=== PATIENT | female | born 1955 | race Caucasian/White ===

== ENCOUNTER → 2023-06-10 | Emergency (ER) | payer OTHER ==
[~2023-06-10] MED LIST: CIPROFLOXACIN 400mg IV 400 MG/200 ML BAG IV ONE; FAMOTIDINE 20 MG/2 ML VIAL IV ONE; METRONIDAZOLE 500mg IVPB 500 MG/100 ML BAG IV ONE; NA CHLORIDE 0.9% 1,000 ML ONE; NS KCL 20MEQ 1,000 ML IV ONE; POTASSIUM 25 MEQ EFFERV TAB ONE; PROMETHAZINE INJ 25 MG/ML AMP ONE
--- OUTSIDE RECORDS SUMMARY | 2023-06-10 09:54 | XMS REPORT | Continuity of Care Document ---
Author Name Unknown Address [address] [facility] [address] [place] [id number] [facility] Address [address] [facility] [address] [place] [address] Care Team Providers Care Sales And Marketing Engineer Name Role Phone Anna Jones MD Primary Care Physician Brianna Samayoa Attending Clinician Unavailable GC_GCBZW_Kadiyala_S Attending Clinician Real Agosto MD Attending Clinician [phone] Anna Jones MD Attending Clinician + [phone] Doctor Unassigned, [place] Attending Clinician U navailable 2, [facility] Attending Clinician Unavailable REAL KWOK Attending Clinician Unavailable Jaison Hernandez DO Attending Clinician ANNA JONES Attending Clinician [facility] Medicare Wellness [facility] Attending Clinici an Unavailable Bette Izquierdo MD Attending Clinician Olive PRIETO, Shar Cowart Attending Clinician [phone] BETTE IZQUIERDO Attending Clinician Unavail able GC_GCBZW_Kadiyala_S Admitting Clinician Pepito Dunn MD, Shar Cowart Admitting Clinician [phone] SHAR DUNN TAYLA Admitting Clinician Unavailab le Payers Payer Name Policy Type Policy Number Effective Date Expirati on Date Source [facility] AARP MCR Advantage (HMO-POS) [id number] 2022 00:00:00 [facility] MEDICARE PART A \\T\\ B [id number] 2018 00:00:00 CONTINENTAL BENEFITS [id number] 2018 00:00:00 Problems Condition Name Condition Details Condition Category Status Onset Date Resolution Date Last Treatment Date Treating Clinician Comments Source 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 10-30 00:00: 00 [facility] Primary hypothyroi dism Primary hypothyroi dism Disease Active 2015-05 00:00: 00 [facility] 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), 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), managed as type 1 Disease Active 2014-05 00:00: 00 [facility] Pure hyperchole sterolemia Pure hyperchole sterolemia Disease Active 2014-05 00:00: 00 [facility] [id number] Acquired hypothyroi dism Problem [facility] [id number] Non-season al allergic rhinitis, unspecifie d trigger Problem [facility] [id number] Hearing difficulty of both ears Problem [facility] [id number] Type 1 diabetes mellitus with hyperglyce patt Problem [facility] Allergies, Adverse Reactions, Alerts Allergy Name Allergy Type Status Severity Reaction(s) Onset Date Inactive Date Treating Clinician Comments Source Sulfa (Sulfona mide Antibiot ics) Propensi ty to adverse reaction s Active Rash 2014-05 00:00: 00 [facility] Sulfa (Sulfona mide Antibiot ics) Propensi ty to adverse reaction s Active Rash 2014-05 00:00: 00 [facility] Substanc e with sulfonam brian structur e and antibact erial mechanis m of action (substan ce) Substanc e with sulfonam brian structur e and antibact erial mechanis m of action (substan ce) Active Unknown [facility] Social History Social Habit Start Date Stop Date Quantity Comments Source History of Tobacco Use [facility] Sex Assigned At [facility] History SDOH Alcohol Std Drinks [facility] History SDOH Alcohol Binge [facility] History SDOH Alcohol Comment [facility] Exposure to SARS-CoV-2 (event) 2020-07-24 00:00:00 2020-08-23 10:07:00 Not sure [facility] History of Social function 2020-01-05 00:00:00 2020-01-05 00:00:00 [facility] History SDOH Alcohol Frequency 2019-11-06 00:00:00 2019-11-06 00:00:00 1 [facility] Alcohol intake 2019-11-06 00:00:00 2019-11-06 00:00:00 0 /d [facility] Tobacco use and exposure 2019-11-06 00:00:00 2019-11-06 00:00:00 Smokeless tobacco non-user [facility] Smoking Status Start Date Stop Date Source Never Smoker [facility] Medications Ordered Medication Name Filled Medication Name Start Date Stop Date Current Medication? Ordering Clinician Indication Dosage Frequency Signature (SIG) Comments Components Source Rosuvastati n Calcium 10 MG Rosuvastati n Calcium 10 MG 2022-05 0- 00:00: 00 No 1{table t} QD Rosuvastat in Calcium 10 MG Rosuvastati n Calcium 10 MG Rosuvastati n Calcium 10 MG 2022-05 0- 00:00: 00 No 1{table t} QD Rosuvastat in Calcium 10 MG Rosuvastati n Calcium 10 MG Rosuvastati n Calcium 10 MG 2022-05 0-11 00:00: 00 No 1{table t} QD Rosuvastat in Calcium 10 MG Rosuvastati n Calcium 10 MG Rosuvastati n Calcium 10 MG 2022-05 0-11 00:00: 00 No 1{table t} QD Rosuvastat in Calcium 10 MG Rosuvastati n Calcium 10 MG Rosuvastati n Calcium 10 MG 2022-05 0-11 00:00: 00 No 1{table t} QD Rosuvastat in Calcium 10 MG Rosuvastati n Calcium 10 MG Rosuvastati n Calcium 10 MG 2022- 0-11 00:00: 00 No 1{table t} QD Rosuvastat in Calcium 10 MG Rosuvastati n Calcium 10 MG Rosuvastati n Calcium 10 MG 2022-05 0-11 00:00: 00 No 1{table t} QD Rosuvastat in Calcium 10 MG Rosuvastati n Calcium 10 MG Rosuvastati n Calcium 10 MG 2022-05 0-11 00:00: 00 No 1{table t} QD Rosuvastat in Calcium 10 MG LEVEMIR FLEXTOUCH U-100 INSULN 100 unit/mL (3 mL) injection 06-22 00:00: 00 Yes [id number] 5U INJECT 5 UNITS UNDER THE SKIN 2 (TWO) TIMES DAILY. E13.9 [facility] LEVEMIR FLEXTOUCH U-100 INSULN 100 unit/mL (3 mL) injection 06-22 00:00: 00 Yes [id number] 5U INJECT 5 UNITS UNDER THE SKIN 2 (TWO) TIMES DAILY. E13.9 [facility] LEVEMIR FLEXTOUCH U-100 INSULN 100 unit/mL (3 mL) injection 06-22 00:00: 00 Yes [id number] 5U INJECT 5 UNITS UNDER THE SKIN 2 (TWO) TIMES DAILY. E13.9 [facility] glucagon (GVOKE HYPOPEN 1-PACK) 1 mg/0.2 mL AtIn 09-15 00:00: 00 Yes [id number] 1mg inject 1 mg under the skin as needed (hypoglyce patt). [facility] glucagon (GVOKE HYPOPEN 1-PACK) 1 mg/0.2 mL AtIn 09-15 00:00: 00 Yes [id number] 1mg inject 1 mg under the skin as needed (hypoglyce patt). [facility] glucagon (GVOKE HYPOPEN 1-PACK) 1 mg/0.2 mL AtIn 09-15 00:00: 00 Yes [id number] 1mg inject 1 mg under the skin as needed (hypoglyce patt). [facility] HUMALOG KATHRINE KWIKPEN U-100 100 unit/mL in 3 00:00: 00 Yes [id number] 2U inject 2-5 Units under the skin 3 (three) times daily before meals. E13.9 [facility] HUMALOG KATHRINE KWIKPEN U-100 100 unit/mL in 3 00:00: 00 Yes [id number] 2U inject 2-5 Units under the skin 3 (three) times daily before meals. E13.9 [facility] HUMALOG KATHRINE KWIKPEN U-100 100 unit/mL in 08-23 00:00: 00 Yes [id number] 2U inject 2-5 Units under the skin 3 (three) times daily before meals. E13.9 [facility] LEVEMIR FLEXTOUCH U-100 INSULN 100 unit/mL (3 mL) injection 08-23 00:00: 00 06-22 00:00 :00 No [id number] 5U inject 5 Units under the skin 2 (two) times daily. E13.9 [facility] DULOXETINE 30 mg capsule 2 00:00: 00 Yes [id number] TAKE 1 CAPSULE BY MOUTH EVERY DAY [facility] DULOXETINE 30 mg capsule 2 00:00: 00 Yes [id number] TAKE 1 CAPSULE BY MOUTH EVERY DAY [facility] DULOXETINE 30 mg capsule 2 00:00: 00 Yes [id number] TAKE 1 CAPSULE BY MOUTH EVERY DAY [facility] levothyroxi ne 88 mcg tablet 2019-05 00:00: 00 Yes [id number] 88ug Take 1 tablet by mouth every morning. [facility] levothyroxi ne 88 mcg tablet 2019-05 00:00: 00 Yes [id number] 88ug Take 1 tablet by mouth every morning. [facility] levothyroxi ne 88 mcg tablet 2019-05 00:00: 00 Yes [id number] 88ug Take 1 tablet by mouth every morning. [facility] Insulin [place], Disposable, (BD INSULIN PEN NEEDLE UF) 31 gauge x 5/16" Ndle 08 00:00: 00 Yes [id number] Four times daily E10.65 [facility] Insulin [place], Disposable, (BD INSULIN PEN NEEDLE UF) 31 gauge x 5/16" Ndle 08 00:00: 00 Yes [id number] Four times daily E10.65 [facility] Insulin [place], Disposable, (BD INSULIN PEN NEEDLE UF) 31 gauge x 5/16" Ndle 12-01 00:00: 00 Yes [id number] Four times daily E10.65 [facility] Insulin [place], Disposable, (BD INSULIN PEN NEEDLE UF) 31 gauge x 5/16" Ndle 12-01 00:00: 00 Yes [id number] Four times daily E10.65 [facility] Insulin Glargine (LANTUS SOLOSTAR U-100 INSULIN) 100 unit/mL (3 mL) injection 06-24 00:00: 00 08-23 00:00 :00 No [id number] 10U inject 10 Units under the skin every morning. E10.9 [facility] insulin aspart U-100 (NOVOLOG FLEXPEN U-100 INSULIN) 100 unit/mL (3 mL) injection 06-24 00:00: 00 08-23 00:00 :00 No [id number] Take up to 15 units daily according to sliding scale and carbohydra te ratio E10.9 [facility] levothyroxi ne 88 mcg tablet 06-24 00:00: 00 04-05 00:00 :00 No [id number] 88ug Take 1 tablet by mouth every morning. [facility] glucagon (GLUCAGON EMERGENCY KIT, HUMAN,) 1 mg injection 07-16 00:00: 00 08-23 00:00 :00 No [id number] 1mg 1 mg by Intramuscu lar route as needed (When low glucose and unconsciou s). [facility] blood sugar diagnostic (ONETOUCH VERIO) strip 09-26 00:00: 00 08-23 00:00 :00 No [id number] Use as directed, 6 times daily, DX: E11.9 [facility] Vitamin C Vitamin C No Vitamin C Iron 325 (65 Fe) MG Iron 325 (65 Fe) MG No 1{table t} Iron 325 (65 Fe) MG Collagen Collagen No Collagen HumaLOG 100 UNIT/ML HumaLOG 100 UNIT/ML No HumaLOG 100 UNIT/ML Calcium 500 MG Calcium 500 MG No 1{table t_with_ meals} BID Calcium 500 MG Levothyroxi ne Sodium 88 MCG Levothyroxi ne Sodium 88 MCG No Levothyrox ine Sodium 88 MCG Vitamin C Vitamin C No Vitamin C Iron 325 (65 Fe) MG Iron 325 (65 Fe) MG No 1{table t} Iron 325 (65 Fe) MG Collagen Collagen No Collagen HumaLOG 100 UNIT/ML HumaLOG 100 UNIT/ML No HumaLOG 100 UNIT/ML Calcium 500 MG Calcium 500 MG No 1{table t_with_ meals} BID Calcium 500 MG Levothyroxi ne Sodium 88 MCG Levothyroxi ne Sodium 88 MCG No Levothyrox ine Sodium 88 MCG Vitamin C Vitamin C No Vitamin C Iron 325 (65 Fe) MG Iron 325 (65 Fe) MG No 1{table t} Iron 325 (65 Fe) MG Collagen Collagen No Collagen HumaLOG 100 UNIT/ML HumaLOG 100 UNIT/ML No HumaLOG 100 UNIT/ML Calcium 500 MG Calcium 500 MG No 1{table t_with_ meals} BID Calcium 500 MG Levothyroxi ne Sodium 88 MCG Levothyroxi ne Sodium 88 MCG No Levothyrox ine Sodium 88 MCG Vitamin C Vitamin C No Vitamin C Iron 325 (65 Fe) MG Iron 325 (65 Fe) MG No 1{table t} Iron 325 (65 Fe) MG Collagen Collagen No Collagen HumaLOG 100 UNIT/ML HumaLOG 100 UNIT/ML No HumaLOG 100 UNIT/ML Calcium 500 MG Calcium 500 MG No 1{table t_with_ meals} BID Calcium 500 MG Levothyroxi ne Sodium 88 MCG Levothyroxi ne Sodium 88 MCG No Levothyrox ine Sodium 88 MCG Vitamin C Vitamin C No Vitamin C Iron 325 (65 Fe) MG Iron 325 (65 Fe) MG No 1{table t} Iron 325 (65 Fe) MG Collagen Collagen No Collagen HumaLOG 100 UNIT/ML HumaLOG 100 UNIT/ML No HumaLOG 100 UNIT/ML Calcium 500 MG Calcium 500 MG No 1{table t_with_ meals} BID Calcium 500 MG Levothyroxi ne Sodium 88 MCG Levothyroxi ne Sodium 88 MCG No Levothyrox ine Sodium 88 MCG Vitamin C Vitamin C No Vitamin C Iron 325 (65 Fe) MG Iron 325 (65 Fe) MG No 1{table t} Iron 325 (65 Fe) MG Collagen Collagen No Collagen HumaLOG 100 UNIT/ML HumaLOG 100 UNIT/ML No HumaLOG 100 UNIT/ML Calcium 500 MG Calcium 500 MG No 1{table t_with_ meals} BID Calcium 500 MG Levothyroxi ne Sodium 88 MCG Levothyroxi ne Sodium 88 MCG No Levothyrox ine Sodium 88 MCG Vitamin C Vitamin C No Vitamin C Iron 325 (65 Fe) MG Iron 325 (65 Fe) MG No 1{table t} Iron 325 (65 Fe) MG Collagen Collagen No Collagen HumaLOG 100 UNIT/ML HumaLOG 100 UNIT/ML No HumaLOG 100 UNIT/ML Calcium 500 MG Calcium 500 MG No 1{table t_with_ meals} BID Calcium 500 MG Levothyroxi ne Sodium 88 MCG Levothyroxi ne Sodium 88 MCG No Levothyrox ine Sodium 88 MCG Vitamin C Vitamin C No Vitamin C Iron 325 (65 Fe) MG Iron 325 (65 Fe) MG No 1{table t} Iron 325 (65 Fe) MG Collagen Collagen No Collagen HumaLOG 100 UNIT/ML HumaLOG 100 UNIT/ML No HumaLOG 100 UNIT/ML Calcium 500 MG Calcium 500 MG No 1{table t_with_ meals} BID Calcium 500 MG Levothyroxi ne Sodium 88 MCG Levothyroxi ne Sodium 88 MCG No Levothyrox ine Sodium 88 MCG Vital Signs Vital Name Observation Time Observation Value Comments S ource height 2023-03-05 14:00:00 60.5 [in_i] Comm on [facility] weight 2023-03-05 14:00:00 101.4 [lb_av] Co mmon [facility] temperature 2023-03-05 14:00:00 97.6 [degF] Com mon [facility] bmi 2023-03-05 14:00:00 19.48 kg/m2 Comm on [facility] oximetry 2023-03-05 14:00:00 95 % Commo n [facility] respiratory rate 2023-03-05 14:00:00 18 /min Common [facility] blood pressure systolic 2023-03-05 14:00:00 134 mm[Hg] [facility] blood pressure diastolic 2023-03-05 14:00:00 78 mm[Hg] Common [facility] height 2022-09-03 11:40:00 60.5 [in_i] Comm on [facility] weight 2022-09-03 11:40:00 104.6 [lb_av] Co mmon [facility] temperature 2022-09-03 11:40:00 97.8 [degF] Com mon [facility] bmi 2022-09-03 11:40:00 20.09 kg/m2 Comm on [facility] oximetry 2022-09-03 11:40:00 95 % Commo n [facility] respiratory rate 2022-09-03 11:40:00 16 /min [facility] blood pressure systolic 2022-09-03 11:40:00 139 mm[Hg] [facility] blood pressure diastolic 2022-09-03 11:40:00 67 mm[Hg] [facility] height 2022-09-03 10:40:00 60.5 [in_i] Comm on [facility] weight 2022-09-03 10:40:00 107 [lb_av] Comm on [facility] bmi 2022-09-03 10:40:00 20.55 kg/m2 Comm on [facility] oximetry 2022-09-03 10:40:00 95 % Commo n [facility] respiratory rate 2022-09-03 10:40:00 16 /min [facility] blood pressure systolic 2022-09-03 10:40:00 139 mm[Hg] Common [facility] blood pressure diastolic 2022-09-03 10:40:00 67 mm[Hg] [facility] height 2022-07-13 10:40:00 60.5 [in_i] Comm on [facility] weight 2022-07-13 10:40:00 107 [lb_av] Comm on [facility] temperature 2022-07-13 10:40:00 97.3 [degF] Com mon [facility] bmi 2022-07-13 10:40:00 20.55 kg/m2 Comm on [facility] oximetry 2022-07-13 10:40:00 98 % Commo n [facility] respiratory rate 2022-07-13 10:40:00 16 /min [facility] blood pressure systolic 2022-07-13 10:40:00 128 mm[Hg] [facility] blood pressure diastolic 2022-07-13 10:40:00 72 mm[Hg] [facility] Encounters Start Date/Time End Date/Time Encounter Type Admission Type Attending [facility] Care Facility Care Department Encounter ID Source 2023-04-09 15:15:00 Outpatient Brianna Samayoa [facility] [id number] [facility] 2022-08-29 08:38:01 Outpatient Brianna Samayoa [facility] [id number] [facility] 2022-07-13 10:40:03 Outpatient Brianna Samayoa [facility] [id number] [facility] 2023-03-26 00:00:00 2023-03-26 00:00:00 Outpatient GC_GCBZW_Ka diyala_S PRIV PRIV [id number] [facility] 2023-03-25 00:00:00 2023-03-25 00:00:00 Outpatient GC_GCBZW_Ka diyala_S PRIV PRIV [id number] [facility] 2023-03-06 00:00:00 2023-03-06 00:00:00 (WEB) STLMLC STLMLC [id number] [facility] 2023-03-05 00:00:00 2023-03-05 00:00:00 OFFICE VISIT ESTAB PT LEVEL 4 STLMLC STLMLC [id number] [facility] 2022-11-29 00:00:00 2022-11-29 00:00:00 (TEL) STLMLC STLMLC [id number] [facility] 2022-11-22 00:00:00 2022-11-22 00:00:00 (TEL) STLMLC STLMLC [id number] [facility] 2022-09-14 00:00:00 2022-09-14 00:00:00 (TEL) STLMLC STLMLC [id number] [facility] 2022-09-03 00:00:00 2022-09-03 00:00:00 OFFICE VISIT ESTAB PT LEVEL 3 STLMLC STLMLC [id number] [facility] 2022-09-03 00:00:00 2022-09-03 00:00:00 SUB ANNUAL [facility] WELLNESS VISIT STLMLC STLMLC [id number] [facility] 2022-07-13 00:00:00 2022-07-13 00:00:00 OFFICE VISIT NEW PT LEVEL 3 STLMLC STLMLC [id number] [facility] 2021-12-01 00:00:00 2021-12-01 00:00:00 Refill [facility] MEDICAL OFFICE BUILDING [id number] 350.1.13.10 4.2.7.2.686 [id number] [facility] 2021-09-22 00:00:00 2021-09-22 00:00:00 Refill [facility] MEDICAL OFFICE BUILDING [id number] 350.1.13.10 4.2.7.2.686 [id number] [facility] 2021-06-18 00:00:00 2021-06-18 00:00:00 Refill Rissa [facility] BUILDING [id number] 350.1.13.10 4.2.7.2.686 [id number] [facility] 2021-05-31 00:00:00 2021-05-31 00:00:00 Telephone Rissa [facility] MED[facility] OFF[facility] BUILDING 1.2840.114 350.1.13.10 4.2.7.2.686 [id number] [facility] 2021-04-30 00:00:00 2021-04-30 00:00:00 Refill Rissa [facility] BUILDING 1.2840.114 350.1.13.10 4.2.7.2.686 [id number] [facility] 2020-09-23 00:00:00 2020-09-23 00:00:00 Telephone Anna Jones [facility] Office Building One 1.2840.114 350.1.13.10 4.2.7.2.686 [id number] [facility] 2020-09-15 00:00:00 2020-09-15 00:00:00 Orders Only Doctor Unassigned, [place] [facility] 1.2840.114 350.1.13.10 4.2.7.2.686 [id number] [facility] 2020-09-14 00:00:00 2020-09-14 00:00:00 Telephone Rissa [facility] Building 1.2840.114 350.1.13.10 4.2.7.2.686 [id number] [facility] 2020-09-02 00:00:2020-09-02 00:00:00 Orders Only Doctor Unassigned, [place] [facility] 1.2.840.114 350.1.13.10 4.2.7.2.686 [id number] [id number] [facility] 2020-08-24 08:06:16 2020-08-24 08:21:16 Software Engineering Supervisor Visit 2, [facility] 1.2.840.114 350.1.13.10 4.2.7.2.686 [id number] [facility] 2020-08-24 08:15:00 2020-08-24 08:15:00 Outpatient R [facility] [id number] [facility] 2020-08-24 00:00:00 2020-08-24 00:00:00 Orders Only Doctor Unassigned, [place] [facility] 1.2840.114 350.1.13.10 4.2.7.2.686 [id number] [id number] [facility] 2020-08-23 10:09:33 2020-08-23 11:01:17 Office Visit Rissa [facility] Building 1.2.840.114 350.1.13.10 4.2.7.2.686 [id number] [facility] 2020-08-23 10:00:00 2020-08-23 10:00:00 Outpatient R RISSA [facility] [id number] [facility] 2020-08-23 00:00:00 2020-08-23 00:00:00 Telephone Anna Jones [facility] Office Building One 1.2.840.114 350.1.13.10 4.2.7.2.686 [id number] [facility] 2020-08-18 00:00:00 2020-08-18 00:00:00 Telephone Veselka, Anna [facility] Office Building One 1.84.114 350.1.13.10 4.2.7.2.686 [id number] [facility] 2020-08-01 00:00:00 2020-08-01 00:00:00 Patient Outreach David Jaison Ball [facility] 1.840.114 350.1.13.10 4.2.7.2.686 [id number] [facility] 2020-06-25 00:00:00 2020-06-25 00:00:00 Refill Job [facility] Office Building One 1..114 350.1.13.10 4.2.7.2.686 [id number] [facility] 2020-06-03 13:14:05 2020-06-03 13:29:05 Office Visit Anna Jones [facility] Office Building One 1.84.114 350.1.13.10 4.2.7.2.686 [id number] [facility] 2020-06-03 13:15:00 2020-06-03 13:15:00 Outpatient R ANNA JONES [facility] [id number] [facility] 2020-05-06 13:00:00 2020-05-06 13:00:00 Outpatient R ANNA JONES [facility] [id number] [facility] 2020-04-05 09:03:34 2020-04-05 09:47:49 Office Visit Real Kwok [facility] Jennifer [facility] Building 1.84.114 350.1.13.10 4.2.7.2.686 [id number] [facility] 2020-04-05 09:00:00 2020-04-05 09:00:00 Outpatient R KWOK, [facility] [id number] [facility] 2020-04-05 00:00:00 2020-04-05 00:00:00 Orders Only Doctor Unassigned, [place] [facility] 1.2840.114 350.1.13.10 4.2.7.2.686 [id number] [facility] 2020-02-03 08:51:07 2020-02-03 10:02:55 Nurse Visit Med, Medicare Wellness Tiago [facility] Building 1.20.114 350.1.13.10 4.2.7.2.686 [id number] [facility] 2020-02-03 09:00:00 2020-02-03 09:00:00 Outpatient R [facility] [id number] [facility] 2020-01-05 00:00:00 2020-01-05 00:00:00 Patient Secure Msg Doctor Unassigned, [place] [facility] 1.2.114 350.1.13.10 4.2.7.2.686 [id number] [facility] 2019-12-02 09:06:11 2019-12-02 09:46:37 Office Visit Rissa [facility] Building 1.20.114 350.1.13.10 4.2.7.2.686 [id number] [facility] 2019-12-02 09:00:00 2019-12-02 09:00:00 Outpatient R RISSA [facility] [id number] [facility] 2019-12-02 00:00:00 2019-12-02 00:00:00 Orders Only Doctor Unassigned, [place] [facility] 1.2840.114 350.1.13.10 4.2.7.2.686 [id number] [facility] 2019-11-24 00:00:00 2019-11-24 00:00:00 Orders Only Doctor Unassigned, [place] [facility] 1.84.114 350.1.13.10 4.2.7.2.686 [id number] [facility] 2019-11-09 00:00:00 2019-11-09 00:00:00 Telephone [facility] Office Building One 1.84.114 350.1.13.10 4.2.7.2.686 [id number] [facility] 2019-11-06 09:26:06 2019-11-06 09:56:06 [facility] 1.840.114 350.1.13.10 4.2.7.2.686 [id number] [facility] 2019-11-06 09:30:00 2019-11-06 09:30:00 Outpatient R ANNA JONES [facility] [id number] [facility] 2019-11-03 00:00:00 2019-11-03 00:00:00 Telephone Job [facility] Building 1.840.114 350.1.13.10 4.2.7.2.686 [id number] [facility] 2019-10-31 20:44:09 2019-11-01 17:00:00 Hospital Encounter Bette Izquierdo [facility] 1.84.114 350.1.13.10 4.2.7.2.686 [id number] [facility] 2019-10-31 20:44:09 2019-11-01 17:00:00 Inpatient U BETTE IZQUIERDO [facility] [id number] [facility] 2019-06-24 09:32:11 2019-06-24 10:32:19 Office Visit Kwok, [facility] 1.2.840.114 350.1.13.10 4.2.7.2.686 [id number] [facility] 2019-06-24 00:00:00 2019-06-24 00:00:00 Orders Only Doctor Unassigned, [place] [facility] 1.2.840.114 350.1.13.10 4.2.7.2.686 [id number] [id number] [facility] 2019-02-11 10:22:29 2019-02-11 10:37:29 Software Engineering Supervisor Visit 2, Adc Lab Rissa [facility] 1.2.840.114 350.1.13.10 [id number] [facility] 2019-02-11 08:59:11 2019-02-11 10:10:21 Office Visit [facility] [id number] [facility] 2019-02-11 00:00:00 2019-02-11 00:00:00 Orders Only Doctor Unassigned, [place] [facility] [id number] [facility] Results Test Description Test Time Test Comments Results Result Co mments Source HEMOGLOBIN [id number] 00:00:00* Test Item Value Reference Range Interpretation Comme nts HEMOGLOBIN A1c (test code = 4548-4) 7.9 % See_Comment H [Automated [employer]] The system which generated this result transmitted reference range: 4.2-5.6 %. The reference range was not used to interpret this result as normal/abnormal. LIPID PANEL WITH REFLEX DIRECT [id number] 00:00:00* Test Item Value Reference Range Interpretation Comme nts CALC LDL CHOL (test code = 35070-2) 114 MG/DL See_Comment H [Automated messa ge] The system which generated this result transmitted reference range: <100 MG/DL. The reference range was not used to interpret this result as normal/abnormal. CHOLESTEROL (test code = 2093-3) 209 MG/DL See_Comment H [Automated messa ge] The system which generated this result transmitted reference range: <200 MG/DL. The reference range was not used to interpret this result as normal/abnormal. HDL CHOLESTEROL (test code = 2085-9) 75 MG/DL See_Comment [Automated [employer]] The system which generated this result transmitted reference range: >39 MG/DL. The reference range was not used to interpret this result as normal/abnormal. RISK RATIO LDL/HDL (test code = 41604-9) 1.52 RATIO See_Comment [Automated message] The system which generated this result transmitted reference range: <3.22 RATIO. The reference range was not used to interpret this result as normal/abnormal. TRIGLYCERIDES (test code = 2571-8) 98 MG/DL See_Comment [[employer]ated [employer]] The system which generated this result transmitted reference range: <150 MG/DL. The reference range was not used to interpret this result as normal/abnormal. TSH + FREE T4 [id number] 00:00:00* Test Item Value Reference Range Interpretation Comme nts FREE T4 (THYROXINE) (test code = 3024-7) 1.88 NG/DL See_Comment [Automated message] The system which generated this result transmitted reference range: 0.80-1.90 NG/DL. The reference range was not used to interpret this result as normal/abnormal. TSH, THIRD GENERATION (test code = 83463-1) 0.437 UIU/ML See_Comment [[employer]ated [employer]] The system which generated this result transmitted reference range: 0.400-4.100 UIU/ML. The reference range was not used to interpret this result as normal/abnormal. ALBUMIN/CREATININE RATIO, RANDOM [id number] 00:00:00* Test Item Value Reference Range Interpretation Comme nts ALBUMIN, URINE, RANDOM (test code = 71100-5) <0.2 MG/DL NOT ESTAB MG/DL CALC ALBUMIN/CREAT, RND (test code = 85778-2) <5 MG/G See_Comment [Automated messa ge] The system which generated this result transmitted reference range: <30 MG/G. The reference range was not used to interpret this result as normal/abnormal. CREATININE, URINE, CONC. (test code = 2161-8) 38.8 MG/DL NOT ESTAB MG/DL COMPREHENSIVE METABOLIC [id number] 00:00:00* Test Item Value Reference Range Interpretation Comme nts ALBUMIN (test code = 1751-7) 4.6 G/DL See_Comment [Automated messa ge] The system which generated this result transmitted reference range: 3.5-5.2 G/DL. The reference range was not used to interpret this result as normal/abnormal. ALKALINE PHOSPHATASE (test code = 6768-6) 92 U/L See_Comment [Automated message] The system which generated this result transmitted reference range: 40-142 U/L. The reference range was not used to interpret this result as normal/abnormal. BILIRUBIN, TOTAL (test code = 1975-2) 0.5 MG/DL See_Comment [Automated message] The system which generated this result transmitted reference range: <=1.2 MG/DL. The reference range was not used to interpret this result as normal/abnormal. BUN (test code = 3094-0) 18 MG/DL See_Comment [Automated messa ge] The system which generated this result transmitted reference range: 8-23 MG/DL. The reference range was not used to interpret this result as normal/abnormal. CALCIUM (test code = 64182-0) 10.0 MG/DL See_Comment [Automated messa ge] The system which generated this result transmitted reference range: 8.5-10.5 MG/DL. The reference range was not used to interpret this result as normal/abnormal. CALC A/G RATIO (test code = 1759-0) 1.6 RATIO See_Comment [Automated messa ge] The system which generated this result transmitted reference range: 1.0-2.6 RATIO. The reference range was not used to interpret this result as normal/abnormal. CALC BUN/CREAT (test code = 3097-3) 18 RATIO See_Comment [Automated messa ge] The system which generated this result transmitted reference range: 6-28 RATIO. The reference range was not used to interpret this result as normal/abnormal. CALC GLOBULIN (test code = 38151-4) 2.8 G/DL See_Comment [Automated messa ge] The system which generated this result transmitted reference range: 1.9-3.7 G/DL. The reference range was not used to interpret this result as normal/abnormal. CARBON DIOXIDE (test code = 1962-8) 28 MEQ/L See_Comment [Automated messa ge] The system which generated this result transmitted reference range: 19-31 MEQ/L. The reference range was not used to interpret this result as normal/abnormal. CHLORIDE (test code = 2075-0) 97 MEQ/L See_Comment [Automated messa ge] The system which generated this result transmitted reference range: 95-107 MEQ/L. The reference range was not used to interpret this result as normal/abnormal. CREATININE (test code = 2160-0) 1.00 MG/DL See_Comment [Automated messa ge] The system which generated this result transmitted reference range: 0.60-1.30 MG/DL. The reference range was not used to interpret this result as normal/abnormal. eGFR (2020 CKD-EPI) (test code = 95715-0) 61 ML/MIN/1.73 See_Comment [Automated messa ge] The system which generated this result transmitted reference range: >60 ML/MIN/1.73. The reference range was not used to interpret this result as normal/abnormal. GLUCOSE (test code = 1558-6) 235 MG/DL See_Comment H [Automated messa ge] The system which generated this result transmitted reference range: 70-99 MG/DL. The reference range was not used to interpret this result as normal/abnormal. POTASSIUM (test code = 2823-3) 4.2 MEQ/L See_Comment [Automated messa ge] The system which generated this result transmitted reference range: 3.5-5.4 MEQ/L. The reference range was not used to interpret this result as normal/abnormal. PROTEIN, TOTAL (test code = 2885-2) 7.4 G/DL See_Comment [Automated messa ge] The system which generated this result transmitted reference range: 6.1-8.3 G/DL. The reference range was not used to interpret this result as normal/abnormal. AST (test code = 1920-8) 19 U/L See_Comment [Automated messa ge] The system which generated this result transmitted reference range: 9-40 U/L. The reference range was not used to interpret this result as normal/abnormal. ALT (test code = 1742-6) 20 U/L See_Comment [[employer]ated [employer]] The system which generated this result transmitted reference range: 5-40 U/L. The reference range was not used to interpret this result as normal/abnormal. SODIUM (test code = 2951-2) 138 MEQ/L See_Comment [[employer]] The system which generated this result transmitted reference range: 133-146 MEQ/L. The reference range was not used to interpret this result as normal/abnormal. DEXA, BONE DENSITY AXIAL SKELEDEXA, BONE DENSITY AXIAL SKELE
[2023-06-10 10:21] LABS: Absolute Lymphocytes (CBC) 1.3 K/uL (0.7-4.9); Hematocrit 36.9 % (36.0-45.0); Lymphocytes % 23.4 % (15.3-44.8); MCV 94.4 fL (80-100); MPV 8.8 fL (7.6-11.3); Platelets 179 thou/uL (152-406); RBC Red Blood Cell Count 3.91 M/uL (3.86-4.86)
[2023-06-10 10:26] LABS: Protime INR 1.23
[2023-06-10 10:44] LABS: Bilirubin Direct 0.2 mg/dL (0-0.2); Bilirubin Indirect, Calculated 0.3 mg/dL (0.2-0.8); Bilirubin Total 0.5 mg/dL (0.2-1.0); Magnesium 1.9 mg/dL (1.6-2.4); Potassium 3.3 mEq/L (3.5-5.1); Protein, Total 6.2 g/dL (6.4-8.2); Troponin High Sensitivity 7.6 pg/mL (<58.9)
--- NOTE | 2023-06-10 11:11 | RAD REPORT ---
EXAM DESCRIPTION: Hemanth Single View06/10/2023 11:00 am CLINICAL HISTORY: COUGH COMPARISON: No comparisons TECHNIQUE: Portable AP view of the chest. FINDINGS: The lungs show bibasilar patchy medial opacities and interstitial prominence. No pneumotho rax or effusion. The cardiomediastinal contours are unremarkable. IMPRESSION: Bibasilar patchy medial opacities and interstitial prominence. Findings may reflect jenny a, atelectasis, or pneumonia.
[2023-06-10 11:39] LABS: SARS-CoV-2 Antigen Rapid Res Negative (Negative)
[2023-06-10 11:45] LABS: Urine Bilirubin NEGATIVE (Negative); Urine Blood Negative (Negative); Urine Clarity Clear (Clear); Urine Color Light-Yellow (Yellow); Urine Glucose 2+ (Negative); Urine Protein NEGATIVE (Negative); Urine Urobilinogen Normal (Normal); Urine pH 6.5 (5.0-7.0)
--- NOTE | 2023-06-10 11:48 | RAD REPORT ---
EXAM DESCRIPTION: CT - Abdomen Pelvis W Contrast - 06/10/2023 11:09 am CLINICAL HISTORY: ABD PAIN COMPARISON: No comparisons TECHNIQUE: Thin cut axial CT imaging of the abdomen and pelvis was performed following intravenous a dministration of 100 mL Isovue 300. Multiplanar reformats were generated and reviewed. All CT scans are performed using dose optimization technique as appropriate and may include automated exposure control or mA/KV adjustment according to patient size. FINDINGS: No suspicious findings in the lung bases. Segmental medial right middle and lower lobe op[place] with volume loss suggestive of steatosis. The liver, spleen, and pancreas show no suspicious findings. Gallbladder demonstrates multiple layeri ng small calcified stones. Mild prominence of the intrahepatic biliary ducts, nonspecific, although t he common bile duct is not dilated. Symmetric renal function is seen with no hydronephrosis or suspicious renal mass. Small right renal c ortical cysts, largest measuring 11 mm. No dilated bowel loops. Moderate stool burden along the proximal colon and moderate to large broad li sandhya of stool in the rectum. Wall thickening noted along the ascending through mid descending colon. N o free air, free fluid or inflammatory stranding. No hernia, mass or bulky lymphadenopathy. The urina ry bladder is without significant finding. No suspicious bony findings. IMPRESSION: Long segments of colonic wall thickening involving the ascending through mid descending colon, suggestive of infectious or inflammatory colitis. Up to large stool burden in the rectum. Nonspecific mild prominence of the intrahepatic biliary ducts, please correlate with serum bilirubin levels. Cholelithiasis.
--- NOTE | 2023-06-10 12:36 | RAD REPORT ---
EXAM DESCRIPTION: CT - Thorax Wo Con CLINICAL HISTORY: Chest pain Congestion;Abdominal distention COMPARISON: Abdomen Pelvis W Contrast dated 06/10/2023; Chest Single View dated 06/10/2023 FINDINGS: Bronchiectasis is identified involving the lingula, medial right middle lobe and posterior right lower lobe. Mild atelectasis and mucous plugging also noted in these regions. No pleural thick ening or pleural effusion. No pneumothorax. No axillary, mediastinal or hilar adenopathy. No concerning bony finding. No gross upper abdominal finding. All CT scans are performed using dose optimization technique as appropriate and may include automated exposure control or mA/KV adjustment according to patient size. IMPRESSION: Bilateral areas of bronchiectasis noted, likely chronic.Superimposed mild mucous pluggin g and atelectasis is present.
--- NOTE | 2023-06-10 13:30 | RAD REPORT ---
EXAM DESCRIPTION: US - Abdomen Exam Limited - 06/10/2023 1:20 pm CLINICAL HISTORY: ABD PAIN COMPARISON: <Comparisons> FINDINGS: The gallbladder demonstrates multiple shadowing gallstones. No pericholecystic fluid or ga llbladder wall thickening. The common bile duct is normal measuring 4 mm. The liver demonstrates no findings of intrahepatic biliary dilatation. IMPRESSION: Extensive cholelithiasis.
--- NOTE | 2023-06-10 13:57 | EDPHYS ---
Physician Documentation [facility] Name: Leigh Ann Staton Age: 67 yrs Sex: Female : 1955 Arrival Date: 06/10/2023 Time: 09:50 Bed 18 Private MD: ED Physician Mendez Snyder HPI: 06/10 10:31 This 67 yrs old Female presents to ER via EMS with complaints of Vomiting. bea 10:31 The patient presents to the emergency department with nausea, vomiting, that is bea continuous. Onset: The symptoms/episode began/occurred just prior to arrival. Possible causes: unknown. The symptoms are aggravated by nothing. The symptoms are alleviated by nothing. Associated signs and symptoms: The patient has no apparent associated signs or symptoms. Severity of symptoms: At their worst the symptoms were mild in the emergency department the symptoms are unchanged. The patient has not experienced similar symptoms in the past. Historical: - Allergies: 09:55 Sulfa (Sulfonamide Antibiotics); ap3 - PMHx: 09:55 Diabetes mellitus; ap3 - Immunization history:: Client reports having NOT received the Covid vaccine. Flu vaccine is not up to date. - Social history:: Smoking status: Patient denies any tobacco usage or history of. ROS: 10:34 Constitutional: Negative for fever, chills, and weight loss, Eyes: Negative for injury, bea pain, redness, and discharge, ENT: Negative for injury, pain, and discharge, Neck: Negative for injury, pain, and swelling, Cardiovascular: Negative for chest pain, palpitations, and edema, Respiratory: Negative for shortness of breath, cough, wheezing, and pleuritic chest pain, Back: Negative for injury and pain, : Negative for injury, bleeding, discharge, and swelling, MS/Extremity: Negative for injury and deformity, Skin: Negative for injury, rash, and discoloration, Neuro: Negative for headache, weakness, numbness, tingling, and seizure, Psych: Negative for depression, anxiety, suicide ideation, homicidal ideation, and hallucinations, Allergy/Immunology: Negative for hives, rash, and allergies, Endocrine: Negative for neck swelling, polydipsia, polyuria, polyphagia, and marked weight changes, Hematologic/Lymphatic: Negative for swollen nodes, abnormal bleeding, and unusual bruising, 10:34 Abdomen/GI: Positive for abdominal pain, nausea and vomiting, vomiting, Exam: 10:38 Constitutional: This is a well developed, well nourished patient who is awake, alert, bea and in no acute distress. Head/Face: Normocephalic, atraumatic. Eyes: Pupils equal round and reactive to light, extra-ocular motions intact. Lids and lashes normal. Conjunctiva and sclera are non-icteric and not injected. Cornea within normal limits. Periorbital areas with no swelling, redness, or edema. ENT: Nares patent. No nasal discharge, no septal abnormalities noted. Tympanic membranes are normal and external auditory canals are clear. Oropharynx with no redness, swelling, or masses, exudates, or evidence of obstruction, uvula midline. Mucous membranes moist. Neck: Trachea midline, no thyromegaly or masses palpated, and no cervical lymphadenopathy. Supple, full range of motion without nuchal rigidity, or vertebral point tenderness. No Meningismus. Chest/axilla: Normal chest wall appearance and motion. Nontender with no deformity. No lesions are appreciated. Cardiovascular: Regular rate and rhythm with a normal S1 and S2. No gallops, murmurs, or rubs. Normal PMI, no JVD. No pulse deficits. Respiratory: Lungs have equal breath sounds bilaterally, clear to auscultation and percussion. No rales, rhonchi or wheezes noted. No increased work of breathing, no retractions or nasal flaring. Back: No spinal tenderness. No costovertebral tenderness. Full range of motion. Female : Normal external genitalia. Skin: Warm, dry with normal turgor. Normal color with no rashes, no lesions, and no evidence of cellulitis. MS/ Extremity: Pulses equal, no cyanosis. Neurovascular intact. Full, normal range of motion. Neuro: Awake and alert, GCS 15, oriented to person, place, time, and situation. Cranial nerves II-XII grossly intact. Motor strength 5/5 in all extremities. Sensory grossly intact. Cerebellar exam normal. Normal gait. Psych: Awake, alert, with orientation to person, place and time. Behavior, mood, and affect are within normal limits. 10:38 ECG was reviewed by the Attending Physician. 10:38 Abdomen/GI: Inspection: abdomen appears normal, Bowel sounds: normal, Palpation: mild abdominal tenderness, in all quadrants, Liver: no appreciated palpable abnormalities, Hernia: not appreciated, 10:38 Musculoskeletal/extremity: DVT Exam: No signs of deep vein thrombosis. no pain, no swelling, no tenderness, negative Homans' sign noted on exam, no appreciated bluish discoloration, no erythema, no increased warmth, Vital Signs: 09:53 BP 138 / 84; Pulse 79; Resp 16; Temp 97.8(A); Pulse Ox 98% on R/A; Weight 44.45 kg; ap3 Height 5 ft. 0 in. ; Pain 0/10; 11:41 BP 113 / 67; Pulse 56; Pulse Ox 96% on R/A; ap3 14:28 BP 99 / 60 LA Supine (auto/reg); Pulse 59 MON; em1 14:28 BP 102 / 65 LA Sitting (auto/reg); Pulse 64 MON; em1 14:28 BP 99 / 63 LA Standing (auto/reg); Pulse 70 MON; em1 14:45 BP 104 / 58; Pulse 59; Resp 18; Pulse Ox 96% on R/A; cm10 09:53 Body Mass Index 19.14 (44.45 kg, 152.4 cm) ap3 09:53 Pain Scale: Adult ap3 MDM: 09:56 Patient medically screened. bea 10:40 Differential diagnosis: Nonspecific abd pain, gastritis, cholecystitis, pancreatitis, bea appendicitis, diverticulitis, viral gastroenteritis, gastroenteritis. Data reviewed: vital signs, nurses notes, EMS record, lab test result(s), EKG, radiologic studies, CT scan, plain films. Consideration of Admission/Observation Escalation of care including admission/observation considered. I considered the following discharge prescriptions or medication management in the emergency department Medications were administered in the Emergency Department. See MAR. Independent interpretation of the following test(s) in the Emergency Department EKG: See my EKG interpretation above. Test considered but Not performed: Ultrasound no abd usg. Historians other than the Patient: EMS: ems well informed. Care significantly affected by the following chronic conditions: Diabetes. Counseling: I had a detailed discussion with the patient and/or guardian regarding the historical points, exam findings, and any diagnostic results supporting the discharge/admit diagnosis, lab results, radiology results. 06/10 10:02 Order name: Basic Metabolic Panel; Complete Time: 11:26 bea 06/10 10:02 Order name: CBC with Diff; Complete Time: 10:41 06/10 10:02 Order name: LFT's; Complete Time: :06/10 10:02 Order name: Magnesium; Complete Time: :06/10 10:02 Order name: NT PRO-BNP; Complete Time: 11:06/10 10:02 Order name: PT-INR; Complete Time: 10:41 06/10 10:02 Order name: Troponin HS; Complete Time: 11:06/10 10:02 Order name: Lipase; Complete Time: :06/10 10:02 Order name: Urinalysis w/ reflexes; Complete Time: 11:52 06/10 10:09 Order name: SARS RAPID; Complete Time: 11:42 [facility] 06/10 10:09 Order name: Flu; Complete Time: 11:52 06/10 10:02 Order name: XRAY Chest (1 view); Complete Time: 11: bea 06/10 10:42 Order name: CT Abd/Pelvis - IV Contrast Only; Complete Time: 11:52 06/10 11:42 Order name: Thorax Wo Con; Complete Time: 13:30 EDMS 06/10 11:56 Order name: US Abdomen Limited; Complete Time: 13:35 06/10 10:02 Order name: EKG; Complete Time: 10:02 06/10 10:02 Order name: Cardiac monitoring; Complete Time: 10:03 06/10 10:02 Order name: EKG - Nurse/Tech; Complete Time: 10:15 06/10 10:02 Order name: IV Saline Lock; Complete Time: 10:03 06/10 10:02 Order name: Labs collected and sent; Complete Time: 10:11 06/10 10:02 Order name: O2 Per Protocol; Complete Time: 10:03 06/10 10:02 Order name: O2 Sat Monitoring; Complete Time: 10:06/10 13:52 Order name: PO challenge; Complete Time: 14:39 06/10 13:52 Order name: Orthostatics; Complete Time: 14:30 [facility] EC:38 Rate is 644 beats/min. Rhythm is regular. QRS [place] is Normal. MA interval is normal. [facility] QRS interval is normal. QT interval is prolonged at 474 msec. No Q waves. T waves are Normal. No ST changes noted. Clinical impression: NSR w/ Non-specific ST/T Changes and No evidence of ischemia. Interpreted by me. Reviewed by me. Administered Medications: 10:04 Drug: NS 0.9% IV 500 ml IV at bolus once Route: IV; Rate: bolus; Site: right ap3 antecubital; 11:41 Follow up: IV Status: Completed infusion; IV Intake: 500ml ap3 10:27 Drug: Promethazine IVP 12.5 mg IVP once Route: IVP; Site: right antecubital; ap3 11:41 Follow up: Response: No adverse reaction; Nausea is decreased ap3 10:28 Drug: NS 0.9% IV 1000 ml IV at 125 ml/hr continuous Route: IV; Rate: 125 ml/hr; Site: ap3 right antecubital; 12:23 Follow up: IV Status: Order to discontinue infusion; IV Intake: 250ml ap3 10:28 Drug: Famotidine IVP 20 mg IVP once; dilute with 10 mL 0.9% NaCl; give over 2 minutes ap3 Route: IVP; Site: right antecubital; 11:41 Follow up: Response: No adverse reaction ap3 11:04 Drug: NS 0.9% IV 500 ml IV at bolus once Route: IV; Rate: bolus; Site: right ap3 antecubital; 11:41 Follow up: IV Status: Completed infusion; IV Intake: 500ml ap3 11:51 Drug: Potassium PO Effervescent Tablet 25 mEq PO once; dissolve in 4 ounces of water or ap3 juice Route: PO; 15:36 Follow up: Response: No adverse reaction cm10 12:22 Drug: NS 0.9% with KCl IV 20 mEq/L 1000 ml IV at 125 ml/hr continuous Route: IV; Rate: ap3 125 ml/hr; Site: right antecubital; 15:36 Follow up: Response: No adverse reaction; IV Status: Completed infusion; IV Intake: cm10 300ml 12:23 Drug: metroNIDAZOLE IVPB 500 mg 100 ml IVPB at 200 ml/hr once over 30 mins Volume: 100 ap3 ml; Route: IVPB; Rate: 200 ml/hr; Infused Over: 30 mins; Site: right antecubital; 13:08 Follow up: Response: No adverse reaction; IV Status: Completed infusion; IV Intake: cm10 100ml 13:07 Drug: Ciprofloxacin IVPB 400 mg 200 ml IVPB once over 60 mins Volume: 200 ml; Route: cm10 IVPB; Infused Over: 60 mins; Site: right antecubital; Disposition Summary: 06/10/23 13:57 Discharge Ordered Notes: Location: Home bea Problem: new bea Symptoms: have improved bae Condition: Stable bea Diagnosis - Left sided colitis without complications bea - Vomiting bea - Nausea with vomiting, unspecified bea - Hypokalemia bea - Other cholelithiasis without obstruction bea - Bronchiectasis, uncomplicated bea Followup: bea - With: Private Physician - When: 2 - 3 days - Reason: Recheck today's complaints, Continuance of care, Re-evaluation by your physician Followup: bea - With: Sean Kaur MD - When: 2 - 3 days - Reason: Recheck today's complaints, Re-evaluation by your physician Followup: bea - With: Tiny Moody MD - When: 2 - 3 days - Reason: Recheck today's complaints, Re-evaluation by your physician Discharge Instructions: - Discharge Summary Sheet bea - Potassium Content of Foods bea - Nausea and Vomiting, Adult bea - Cholelithiasis bea - Cholelithiasis, [id number] bea - Nausea and Vomiting, Adult, [id number] bea - Bronchiectasis bea - Vomiting, Adult bea - Colitis [facility] Forms: - Medication Reconciliation Form [facility] - Thank You Letter [facility] - Antibiotic Education bea - Prescription Opioid Use bea - Patient Portal Instructions [facility] - Leadership Thank You Letter [facility] Prescriptions: - ondansetron 4 mg Oral Tablet,disintegrating - take 1 tablet ORAL route every 6-8 hours for 5 days; 20 tablet; Refills: 0, [facility] Product Selection Permitted - Flagyl 500 mg Oral tablet - take 1 tablet ORAL route every 12 hours for 10 days; 20 tablet; Refills: 0, [facility] Product Selection Permitted - levofloxacin 250 mg Oral tablet - take 1 tablet ORAL route once daily; 10 tablet; Refills: 0, Product Selection [facility] Permitted Signatures: Dispatcher [employer] EDMendez Navas MD MD cha Prokisch, Amanda, RN RN ap3 Amalia Perez RN RN cm10 Corrections: (The following items were deleted from the chart) 11:42 11:33 Chest Abdomen Pelvis W Con+CT.RAD.BRZ ordered. EDMS EDMS 14:20 13:36 Cholangiogram ordered. EDMS EDMS
--- NOTE | 2023-06-10 13:57 | ER ---
Nurse's Notes [facility] Name: Leigh Ann Staton Age: 67 yrs Sex: Female : 1955 Arrival Date: 06/10/2023 Time: 09:50 Bed 18 Private MD: Diagnosis: Left sided colitis without complications;Vomiting;Nausea with vomiting, unspecified;Hypokalemia;Other cholelithiasis without obstruction;Bronchiectasis, uncomplicated Presentation: 06/10 09:53 Chief complaint: EMS states: patient has been having nausea and vomiting since approx ap3 0830 this morning. patient states that it came out of no where, as she felt fine when she woke up. Coronavirus screen: At this time, the client does not indicate any symptoms associated with coronavirus-19. Ebola Screen: No symptoms or risks identified at this time. Initial Sepsis Screen: Does the patient meet any 2 criteria? No. Patient's initial sepsis screen is negative. Does the patient have a suspected source of infection? No. Patient's initial sepsis screen is negative. Risk Assessment: Do you want to hurt yourself or someone else? Patient reports no desire to harm self or others. Onset of symptoms was June 10, 2023 at 08:30. Care prior to arrival: Medication(s) given: Normal saline infusion, 500 mL, zofran 8 mg, IV initiated. 20 GA, in the right antecubital area. 09:53 Method Of Arrival: EMS: [facility] ap3 09:53 Acuity: BETO 3 ap3 Triage Assessment: 09:55 General: Appears ill, Behavior is calm, cooperative. Pain: Denies pain. Neuro: Level of ap3 Consciousness is awake, alert, obeys commands, Oriented to person, place, time, situation, Appropriate for age. Cardiovascular: Patient's skin is warm and dry. Respiratory: Airway is patent Respiratory effort is even, unlabored, Respiratory pattern is regular, symmetrical. GI: Reports nausea, vomiting. Historical: - Allergies: 09:55 Sulfa (Sulfonamide Antibiotics); ap3 - PMHx: 09:55 Diabetes mellitus; ap3 - Immunization history:: Client reports having NOT received the Covid vaccine. Flu vaccine is not up to date. - Social history:: Smoking status: Patient denies any tobacco usage or history of. Screenin:56 Abuse screen: Denies threats or abuse. Nutritional screening: No deficits noted. ap3 Tuberculosis screening: No symptoms or risk factors identified. 15:37 [facility] ED Fall Risk Assessment (Adult) History of falling in the last 3 months, cm10 including since admission No falls in past 3 months (0 pts) Confusion or Disorientation No (0 pts) Intoxicated or Sedated No (0 pts) Impaired Gait Yes (1 pt) Mobility Assist Device Used Yes (1 pt) Altered Elimination Yes (1 pt) Score/Fall Risk Level 3 or more points = High Risk Oriented to surroundings, Maintained a safe environment, Hourly rounding (assess needs \T\ fall precautionary measures) done. Vital Signs: 09:53 BP 138 / 84; Pulse 79; Resp 16; Temp 97.8(A); Pulse Ox 98% on R/A; Weight 44.45 kg; ap3 Height 5 ft. 0 in. ; Pain 0/10; 11:41 BP 113 / 67; Pulse 56; Pulse Ox 96% on R/A; ap3 14:28 BP 99 / 60 LA Supine (auto/reg); Pulse 59 MON; em1 14:28 BP 102 / 65 LA Sitting (auto/reg); Pulse 64 MON; em1 14:28 BP 99 / 63 LA Standing (auto/reg); Pulse 70 MON; em1 14:45 BP 104 / 58; Pulse 59; Resp 18; Pulse Ox 96% on R/A; cm10 09:53 Body Mass Index 19.14 (44.45 kg, 152.4 cm) ap3 09:53 Pain Scale: Adult ap3 ED Course: 09:53 Patient arrived in ED. ds4 09:53 Shruti Jeronimo, RN is Primary Nurse. ap3 09:54 Triage completed. ap3 09:55 Mendez Snyder MD is Attending Physician. bea 09:56 Arm band placed on right wrist. ap3 09:56 Patient has correct armband on for positive identification. Bed in low position. Call ap3 light in reach. Side rails up X2. monitor and storage bin tender on. Pulse ox on. NIBP on. 10:16 EKG done, by ED staff, reviewed by Mendez Snyder MD. ty 11:02 XRAY Chest (1 view) In Process Unspecified. EDMS 11:10 CT Abd/Pelvis - IV Contrast Only In Process Unspecified. EDMS 12:28 Thorax Wo Con In Process Unspecified. EDMS 13:22 US Abdomen Limited In Process Unspecified. EDMS 14:01 Sean Kaur MD is Referral Physician. bea 14:01 Tiny Moody MD is Referral Physician. bea 15:35 No provider procedures requiring assistance completed. IV discontinued, intact, cm10 bleeding controlled, No redness/swelling at site. Pressure dressing applied. 15:37 Provided Education on: ER process and procedures. cm10 Administered Medications: 10:04 Drug: NS 0.9% IV 500 ml IV at bolus once Route: IV; Rate: bolus; Site: right ap3 antecubital; 11:41 Follow up: IV Status: Completed infusion; IV Intake: 500ml ap3 10:27 Drug: Promethazine IVP 12.5 mg IVP once Route: IVP; Site: right antecubital; ap3 11:41 Follow up: Response: No adverse reaction; Nausea is decreased ap3 10:28 Drug: NS 0.9% IV 1000 ml IV at 125 ml/hr continuous Route: IV; Rate: 125 ml/hr; Site: ap3 right antecubital; 12:23 Follow up: IV Status: Order to discontinue infusion; IV Intake: 250ml ap3 10:28 Drug: Famotidine IVP 20 mg IVP once; dilute with 10 mL 0.9% NaCl; give over 2 minutes ap3 Route: IVP; Site: right antecubital; 11:41 Follow up: Response: No adverse reaction ap3 11:04 Drug: NS 0.9% IV 500 ml IV at bolus once Route: IV; Rate: bolus; Site: right ap3 antecubital; 11:41 Follow up: IV Status: Completed infusion; IV Intake: 500ml ap3 11:51 Drug: Potassium PO Effervescent Tablet 25 mEq PO once; dissolve in 4 ounces of water or ap3 juice Route: PO; 15:36 Follow up: Response: No adverse reaction cm10 12:22 Drug: NS 0.9% with KCl IV 20 mEq/L 1000 ml IV at 125 ml/hr continuous Route: IV; Rate: ap3 125 ml/hr; Site: right antecubital; 15:36 Follow up: Response: No adverse reaction; IV Status: Completed infusion; IV Intake: cm10 300ml 12:23 Drug: metroNIDAZOLE IVPB 500 mg 100 ml IVPB at 200 ml/hr once over 30 mins Volume: 100 ap3 ml; Route: IVPB; Rate: 200 ml/hr; Infused Over: 30 mins; Site: right antecubital; 13:08 Follow up: Response: No adverse reaction; IV Status: Completed infusion; IV Intake: cm10 100ml 13:07 Drug: Ciprofloxacin IVPB 400 mg 200 ml IVPB once over 60 mins Volume: 200 ml; Route: cm10 IVPB; Infused Over: 60 mins; Site: right antecubital; Medication: 09:56 VIS not applicable for this client. ap3 Intake: 11:41 IV: 500ml; Total: 500ml. ap3 11:41 IV: 500ml; Total: 1000ml. ap3 12:23 IV: 250ml; Total: 1250ml. ap3 13:08 IV: 100ml; Total: 1350ml. cm10 15:36 IV: 300ml; Total: 1650ml. cm10 Outcome: 13:57 Discharge ordered by MD. figueredo 15:37 Discharged to home via wheelchair, with family, [facility] [place] 15:37 Condition: good 15:37 Discharge instructions given to patient, Instructed on discharge instructions, follow up and referral plans. medication usage, Demonstrated understanding of instructions, follow-up care, medications, Prescriptions given X 3, 15:37 Patient left the ED. cm10 Signatures: Dispatcher [employer] Mendez Jaimes MD MD cha Martinez, Eric emRick [email or web address] Shruti Jeronimo RN RN ap3 Amalia Perez RN RN cm10 John Cantu
[2023-06-10 15:59] VITALS: BP 104/58; TEMP 97.8; O2SAT 96
== END ==
LOC: ER 09:50
DX: K51.50 Left sided colitis without complications (principal); K80.80 Other cholelithiasis without obstruction; E87.6 Hypokalemia; J47.9 Bronchiectasis, uncomplicated; E11.9 Type 2 diabetes mellitus without complications; Z11.52 Encounter for screening for COVID-19; Z88.2 Allergy status to sulfonamides; Z28.310 Unvaccinated for COVID-19
CPT/HCPCS: 96365; 96361; 93005; 85025; 80048; 36415; 83735; 85610; 80076; 81003; 84484; 83690; 83880; 87804 ×2; 71250; 74177; 71045; 76705; 96375; 99285; 87811; Q9967; J2550; J0744; J7030; J3480

== ENCOUNTER 2023-08-23 04:21 | Emergency (ER) | payer OTHER ==
--- OUTSIDE RECORDS SUMMARY | 2023-08-23 04:25 | XMS REPORT | Continuity of Care Document ---
Author Name Unknown Address [address] [facility] [address] [place] [address] [facility] Address [address] [facility]. [address] [place] [address] Care Team Providers [employer] Name Role Phone Anna Jones MD Primary Care Physician Brianna Samayoa Attending Clinician Unavailable GC_GCBZW_Kadiyala_S Attending Clinician Real Agosto MD Attending Clinician Anna Jones MD Attending Clinician [phone] Doctor Unassigned, [place] Attending Clinician U navailable 2, [facility] Attending Clinician Unavailable REAL KWOK Attending Clinician Unavailable Jaison Hernandez DO Attending Clinician ANNA JONES Attending Clinician [facility] Wellness [facility] Attending Clinici an Unavailable Bette Izquierdo MD Attending Clinician Mona PRIETO, Shar Cowart Attending Clinician BETTE IZQUIERDO Attending Clinician Unavail able GC_GCBZW_Kadiyala_S Admitting Clinician Pepito Schaefer MD, Shar Cowart Admitting Clinician MONA SHAR COWART Admitting Clinician Unavailab le Payers Payer Name Policy Type Policy Number Effective Date Expirati on Date Source [facility] Dual Complete Choice (Regional PPO D-[id number]) [id number] 2022 00:00:00 [facility] MEDICARE PART A \\T\\ B [id number] 2018 00:00:00 CONTINENTAL BENEFITS [id number] 2018 00:00:00 Problems Condition Name Condition Details Condition Category Status Onset Date Resolution Date Last Treatment Date Treating Clinician Comments Source 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 10-30 00:00: 00 [facility] Primary hypothyroi dism Primary hypothyroi dism Disease Active 2015-05 00:00: 00 [facility] 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), 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), managed as type 1 Disease Active 2014-05 00:00: 00 [facility] Pure hyperchole sterolemia Pure hyperchole sterolemia Disease Active 2014-05 00:00: 00 [facility] [id number] Acquired hypothyroi dism Problem [facility] [id number] Non-season al allergic rhinitis, unspecifie d trigger Problem [facility] [id number] Hearing difficulty of both ears Problem [facility] [id number] Constipati on, unspecifie d constipati on type Problem [facility] [id number] Calculus of gallbladde r without cholecysti tis without obstructio n Problem [facility] [id number] Adult bronchiect asis Problem [facility] [id number] Type 1 diabetes mellitus with hyperglyce patt Problem [facility] Allergies, Adverse Reactions, Alerts Allergy Name Allergy Type Status Severity Reaction(s) Onset Date Inactive Date Treating Clinician Comments Source Sulfa (Sulfona mide Antibiot ics) Propensi ty to adverse reaction s Active Rash 2014-05 00:00: 00 [facility] Sulfa (Sulfona mide Antibiot ics) Propensi ty to adverse reaction s Active Rash 2014-05 00:00: 00 [facility] Substanc e with sulfonam brian structur e and antibact erial mechanis m of action (substan ce) Substanc e with sulfonam brian structur e and antibact erial mechanis m of action (substan ce) Active Unknown [facility] Social History Social Habit Start Date Stop Date Quantity Comments Source History SDOH Alcohol Std Drinks [facility] History SDOH Alcohol Binge [facility] History SDOH Alcohol Comment [facility] of Tobacco Use [facility] Sex Assigned At [facility] Exposure to SARS-CoV-2 (event) 2020-07-24 00:00:00 2020-08-23 10:07:00 Not sure [facility] History of Social function 2020-01-05 00:00:00 2020-01-05 00:00:00 [facility] History SDOH Alcohol Frequency 2019-11-06 00:00:00 2019-11-06 00:00:00 1 [facility] Alcohol intake 2019-11-06 00:00:00 2019-11-06 00:00:00 0 /d [facility] Tobacco use and exposure 2019-11-06 00:00:00 2019-11-06 00:00:00 Smokeless tobacco non-user [facility] Smoking Status Start Date Stop Date Source Never Smoker [facility] Medications Ordered Medication Name Filled Medication Name [...] 10 MG Rosuvastati n Calcium 10 MG 2022-1 0-11 00:00: 00 No 1{table t} QD [...] 0-11 00:00: 00 No 1{table t} QD Rosuvastati n Calcium 10 MG Rosuvastati n [...] U-100 INSULN 100 unit/mL (3 mL) injection 2021- 1-27 00:00: 00 Yes [id number] 5U INJECT 5 UNITS UNDER THE SKIN 2 (TWO) TIMES DAILY. E13.9 [facility] LEVEMIR FLEXTOUCH U-100 INSULN 100 unit/mL (3 mL) injection 06-22 00:00: 00 Yes [id number] 5U INJECT 5 UNITS UNDER THE SKIN 2 (TWO) TIMES DAILY. E13.9 [facility] LEVEMIR FLEXTOUCH U-100 INSULN 100 unit/mL (3 mL) injection 06-22 00:00: 00 Yes [id number] 5U INJECT 5 UNITS UNDER THE SKIN 2 (TWO) TIMES DAILY. E13.9 [facility] glucagon (GVOKE HYPOPEN 1-PACK) 1 mg/0.2 mL AtIn 09-15 00:00: 00 Yes [id number] 1mg inject 1 mg under the skin as needed (hypoglyce patt). [facility] glucagon (GVOKE HYPOPEN 1-PACK) 1 mg/0.2 mL AtNm 09-15 00:00: 00 Yes [id number] 1mg inject 1 mg under the skin as needed (hypoglyce patt). [facility] glucagon (GVOKE HYPOPEN 1-PACK) 1 mg/0.2 mL AtIn 09-15 00:00: 00 Yes [id number] 1mg inject 1 mg under the skin as needed (hypoglyce patt). [facility] HUMALOG KATHRINE KWIKPEN U-100 100 unit/mL in 3 00:00: 00 Yes [id number] 2U inject 2-5 Units under the skin 3 (three) times daily before meals. E13.9 [facility] HUMALOG KATHRINE KWIKPEN U-100 100 unit/mL in 3 00:00: 00 Yes [id number] 2U inject 2-5 Units under the skin 3 (three) times daily before meals. E13.9 [facility] HUMALOG KATHRINE KWIKPEN U-100 100 unit/mL in 3 00:00: 00 Yes [id number] 2U inject 2-5 Units under the skin 3 (three) times daily before meals. E13.9 [facility] LEVEMIR FLEXTOUCH U-100 INSULN 100 unit/mL (3 mL) injection 3-30 00:00: 00 06-22 00:00 :00 No [id number] 5U inject 5 Units under the skin 2 (two) times daily. E13.9 [facility] DULOXETINE 30 mg capsule 2- 00:00: 00 Yes [id number] TAKE 1 CAPSULE BY MOUTH EVERY DAY [facility] DULOXETINE 30 mg capsule 2- 00:00: 00 Yes [id number] TAKE 1 CAPSULE BY MOUTH EVERY DAY [facility] DULOXETINE 30 mg capsule 2- 00:00: 00 Yes [id number] TAKE 1 CAPSULE BY MOUTH EVERY DAY [facility] levothyroxi ne 88 mcg tablet 2019-05 00:00: 00 Yes [id number] 88ug Take 1 tablet by mouth every morning. [facility] levothyroxi ne 88 mcg tablet 2019-05 00:00: 00 Yes [id number] 88ug Take 1 tablet by mouth every morning. [facility] levothyroxi ne 88 mcg tablet 2019-05 00:00: 00 Yes [id number] 88ug Take 1 tablet by mouth every morning. [facility] Insulin [place], Disposable, (BD INSULIN PEN NEEDLE UF) 31 gauge x 5/16" Ndle 08 00:00: 00 Yes [id number] Four times daily E10.65 [facility] Insulin [place], Disposable, (BD INSULIN PEN NEEDLE UF) 31 gauge x 5/16" Ndle -08 00:00: 00 Yes [id number] Four times daily E10.65 [facility] Insulin [place], Disposable, (BD INSULIN PEN NEEDLE UF) 31 gauge x 5/16" Ndle 20200 7-08 00:00: 00 Yes [id number] Four times daily E10.65 [facility] Insulin [place], Disposable, (BD INSULIN PEN NEEDLE UF) 31 gauge x 5/16" Ndle 7-08 00:00: 00 Yes [id number] Four times daily E10.65 [facility] Insulin Glargine (LANTUS SOLOSTAR U-100 INSULIN) 100 unit/mL (3 mL) injection 06-24 00:00: 08-23 00:00 :00 No [id number] 10U inject 10 Units under the skin every morning. E10.9 [facility] insulin aspart U-100 (NOVOLOG FLEXPEN U-100 INSULIN) 100 unit/mL (3 mL) injection 06-24 00:00: 08-23 00:00 :00 No [id number] Take up to 15 units daily according to sliding scale and carbohydra te ratio E10.9 [facility] levothyroxi ne 88 mcg tablet 06-24 00:00: 00 04-05 00:00 :00 No [id number] 88ug Take 1 tablet by mouth every morning. [facility] glucagon (GLUCAGON EMERGENCY KIT, HUMAN,) 1 mg injection 220 00:00: 08-23 00:00 :00 No [id number] 1mg 1 mg by Intramuscu lar route as needed (When low glucose and unconsciou s). [facility] blood sugar diagnostic (ONETOUCH VERIO) strip - 00:00: 00 08-23 00:00 :00 No [id number] Use as directed, 6 times daily, DX: E11.9 [facility] Iron 325 (65 Fe) MG Iron 325 [...] 1{table t} Iron 325 (65 Fe) MG Calcium 500 MG Calcium 500 MG No 1{table t_with_ meals} BID Calcium 500 MG HumaLOG 100 UNIT/ML HumaLOG 100 UNIT/ML No HumaLOG 100 UNIT/ML Levothyroxi ne Sodium 88 MCG Levothyroxi ne Sodium 88 MCG No Levothyrox ine Sodium 88 MCG Collagen Collagen No Collagen Vitamin C Vitamin C No Vitamin C Iron 325 (65 Fe) MG Iron 325 (65 Fe) MG No 1{table t} Iron 325 (65 Fe) MG Calcium 500 MG Calcium 500 MG No 1{table t_with_ meals} BID Calcium 500 MG HumaLOG 100 UNIT/ML HumaLOG 100 UNIT/ML No HumaLOG 100 UNIT/ML Levothyroxi ne Sodium 88 MCG Levothyroxi ne Sodium 88 MCG No Levothyrox ine Sodium 88 MCG Collagen Collagen No Collagen Vitamin C Vitamin C No Vitamin C Iron 325 (65 Fe) MG Iron 325 (65 Fe) MG No 1{table t} Iron 325 (65 Fe) MG Iron 325 (65 Fe) MG Iron 325 (65 Fe) MG No 1{table t} Iron 325 (65 Fe) MG Calcium 500 MG Calcium 500 MG No 1{table t_with_ meals} BID Calcium 500 MG HumaLOG 100 UNIT/ML HumaLOG 100 UNIT/ML No HumaLOG 100 UNIT/ML Levothyroxi ne Sodium 88 MCG Levothyroxi ne Sodium 88 MCG No Levothyrox ine Sodium 88 MCG Collagen Collagen No Collagen Vitamin C Vitamin C No Vitamin C Collagen Collagen No Collagen Iron 325 (65 Fe) MG Iron 325 (65 Fe) MG No 1{table t} Calcium 500 MG Calcium 500 MG No 1{table t_with_ meals} BID HumaLOG 100 UNIT/ML HumaLOG 100 UNIT/ML No Levothyroxi ne Sodium 88 MCG Levothyroxi ne Sodium 88 MCG No Collagen Collagen No Vitamin C Vitamin C No Multi Complete Multi Complete No Multi Complete Levothyroxi ne Sodium 88 MCG Levothyroxi ne Sodium 88 MCG No Levothyrox ine Sodium 88 MCG Iron 325 (65 Fe) MG Iron 325 (65 Fe) MG No 1{table t} Iron 325 (65 Fe) MG Vitamin D Vitamin D No Vitamin D Vitamin C Vitamin C No Vitamin C HumaLOG 100 UNIT/ML HumaLOG 100 UNIT/ML No HumaLOG 100 UNIT/ML HumaLOG 100 UNIT/ML HumaLOG 100 UNIT/ML No [...] Vitamin C Vitamin C No Vitamin C Vital Signs Vital Name Observation Time Observation Value Comments S ky height 2023-07-29 13:20:00 60.5 [in_i] Comm on [facility] weight 2023-07-29 13:20:00 99.4 [lb_av] Com [facility] temperature 2023-07-29 13:20:00 97.4 [degF] Com [facility] bmi 2023-07-29 13:20:00 19.09 kg/m2 Comm on [facility] oximetry 2023-07-29 13:20:00 97 % Commo n [facility] respiratory rate 2023-07-29 13:20:00 16 /min [facility] blood pressure systolic 2023-07-29 13:20:00 120 mm[Hg] [facility] blood pressure diastolic 2023-07-29 13:20:00 67 mm[Hg] [facility] height 2023-06-12 09:20:00 60.5 [in_i] Comm on [facility] weight 2023-06-12 09:20:00 101 [lb_av] Comm on [facility] bmi 2023-06-12 09:20:00 19.4 kg/m2 Commo n [facility] height 2023-03-05 14:00:00 60.5 [in_i] Comm on [facility] weight 2023-03-05 14:00:00 101.4 [lb_av] Co mmon [facility] temperature 2023-03-05 14:00:00 97.6 [degF] Com mon [facility] bmi 2023-03-05 14:00:00 19.48 kg/m2 Comm on [facility] oximetry 2023-03-05 14:00:00 95 % Commo n [facility] respiratory rate 2023-03-05 14:00:00 18 /min Common [facility] blood pressure systolic 2023-03-05 14:00:00 134 mm[Hg] Common [facility] blood pressure diastolic 2023-03-05 14:00:00 78 mm[Hg] Common [facility] height 2022-09-03 11:40:00 60.5 [in_i] Comm on [facility] weight 2022-09-03 11:40:00 104.6 [lb_av] Co mmon [facility] temperature 2022-09-03 11:40:00 97.8 [degF] Com mon [facility] bmi 2022-09-03 11:40:00 20.09 kg/m2 Comm on [facility] oximetry 2022-09-03 11:40:00 95 % Commo n [facility] respiratory rate 2022-09-03 11:40:00 16 /min Common [facility] blood pressure systolic 2022-09-03 11:40:00 139 mm[Hg] Common [facility] blood pressure diastolic 2022-09-03 11:40:00 67 mm[Hg] Common [facility] height 2022-09-03 10:40:00 60.5 [in_i] Comm on [facility] weight 2022-09-03 10:40:00 107 [lb_av] Comm on [facility] bmi 2022-09-03 10:40:00 20.55 kg/m2 Comm on [facility] oximetry 2022-09-03 10:40:00 95 % Commo n [facility] respiratory rate 2022-09-03 10:40:00 16 /min [facility] blood pressure systolic 2022-09-03 10:40:00 139 mm[Hg] [facility] blood pressure diastolic 2022-09-03 10:40:00 67 mm[Hg] [facility] height 2022-07-13 10:40:00 60.5 [in_i] Comm on [facility] weight 2022-07-13 10:40:00 107 [lb_av] Comm on [facility] temperature 2022-07-13 10:40:00 97.3 [degF] Com mon [facility] bmi 2022-07-13 10:40:00 20.55 kg/m2 Comm on [facility] oximetry 2022-07-13 10:40:00 98 % Commo n [facility] respiratory rate 2022-07-13 10:40:00 16 /min [facility] blood pressure systolic 2022-07-13 10:40:00 128 mm[Hg] [facility] blood pressure diastolic 2022-07-13 10:40:00 72 mm[Hg] [facility] Encounters Start Date/Time End Date/Time Encounter Type Admission Type Attending [facility] Care Department Encounter ID Source 2023-06-12 09:41:01 Outpatient [facility] [id number] [facility] 2023-04-09 15:15:00 Outpatient Brianna Samayoa [facility] [id number] [facility] 2022-08-29 08:38:01 Outpatient Brianna Samayoa [facility] [id number] [facility] 2022-07-13 10:40:03 Outpatient Brianna Samayoa [facility] [id number] [facility] 2023-07-29 00:00:00 2023-07-29 00:00:00 OFFICE VISIT ESTAB PT LEVEL 3 [facility] [id number] [facility] 2023-07-25 00:00:00 2023-07-25 00:00:00 (WEB) [facility] [id number] [facility] 2023-06-18 00:00:00 2023-06-18 00:00:00 (TEL) [facility] [id number] [facility] 2023-06-12 00:00:00 2023-06-12 00:00:00 (WEB) [facility]LMLC [facility] [id number] [facility] 2023-06-12 00:00:00 2023-06-12 00:00:00 OFFICE VISIT ESTAB PT LEVEL 5 [facility] [id number] [facility] 2023-03-26 00:00:00 2023-03-26 00:00:00 Outpatient GC_GCBZW_Ka diyala_S PRIV PRIV [id number] [facility] 2023-03-25 00:00:00 2023-03-25 00:00:00 Outpatient GC_GCBZW_Ka diyala_S PRIV PRIV [id number] [facility] 2023-03-06 00:00:00 2023-03-06 00:00:00 (WEB) STLMLC ST[facility] [id number] [facility] 2023-03-05 00:00:00 2023-03-05 00:00:00 OFFICE VISIT ESTAB PT LEVEL 4 [facility] [id number] [facility] 2022-11-29 00:00:00 2022-11-29 00:00:00 (TEL) STLMLC ST[facility] [id number] [facility] 2022-11-22 00:00:00 2022-11-22 00:00:00 (TEL) STLMLC [facility] [id number] [facility] 2022-09-14 00:00:2022-09-14 00:00:00 (TEL) STLMLC STLML[facility] [id number] [facility] 2022-09-03 00:00:00 2022-09-03 00:00:00 OFFICE VISIT ESTAB PT LEVEL 3 [facility] ST[facility] [id number] [facility] 2022-09-03 00:00:00 2022-09-03 00:00:00 SUB ANNUAL [facility] WELLNESS VISIT STLMLC ST[facility] [id number] [facility] 2022-07-13 00:00:00 2022-07-13 00:00:00 OFFICE VISIT NEW PT LEVEL 3 [facility] ST[facility] [id number] [facility] 2021-12-01 00:00:00 2021-12-01 00:00:00 Refill Kwok, [facility] OFFICE BUILDING [id number] 350.1.13.10 4.2.7.2.686 [id number] [facility] 2021-09-22 00:00:00 2021-09-22 00:00:00 Refill Kwok [facility] OFFICE BUILDING 1.2.840.114 350.1.13.10 4.2.7.2.686 [id number] [facility] 2021-06-18 00:00:00 2021-06-18 00:00:00 Refill Rissa [facility] 1.2.840.114 350.1.13.10 4.2.7.2.686 [id number] [facility] 2021-05-31 00:00:00 2021-05-31 00:00:00 Telephone Kwok [facility] OFFICE BUILDING 1.2.840.114 350.1.13.10 4.2.7.2.686 [id number] [facility] 2021-04-30 00:00:00 2021-04-30 00:00:00 Refill Real Kwok [facility] BUILDING 1.2.840.114 350.1.13.10 4.2.7.2.686 [id number] [facility] 2020-09-23 00:00:00 2020-09-23 00:00:00 Telephone YuanshahzadAnna [facility] Office Building One 1.2.840.114 350.1.13.10 4.2.7.2.686 [id number] [facility] 2020-09-15 00:00:00 2020-09-15 00:00:00 Orders Only Doctor Unassigned, [place] [facility] 1.2.840.114 350.1.13.10 4.2.7.2.686 [id number] [facility] 2020-09-14 00:00:00 2020-09-14 00:00:00 [facility] 1.2.840.114 350.1.13.10 4.2.7.2.686 [id number] [facility] 2020-09-02 00:00:00 2020-09-02 00:00:00 Orders Only Doctor Unassigned, [place] [facility] 1.2.840.114 350.1.13.10 4.2.7.2.686 [id number] [facility] 2020-08-24 08:06:16 2020-08-24 08:21:16 Bodywork Therapist Visit 2, Adc Lab Anna Jones [facility] Building 1.2.840.114 350.1.13.10 4.2.7.2.686 [id number] [facility] 2020-08-24 08:15:00 2020-08-24 08:15:00 Outpatient R [facility] [id number] [facility] 2020-08-24 00:00:00 2020-08-24 00:00:00 Orders Only Doctor Unassigned, [place] [facility] 1.2840.114 350.1.13.10 4.2.7.2.686 [id number] [facility] 2020-08-23 10:09:33 2020-08-23 11:01:17 Office Visit Rissa [facility] Building 1..114 350.1.13.10 4.2.7.2.686 [id number] [facility] 2020-08-23 10:00:00 2020-08-23 10:00:00 Outpatient R [facility] [id number] [facility] 2020-08-23 00:00:00 2020-08-23 00:00:00 Telephone [facility] Office Building One 1..114 350.1.13.10 4.2.7.2.686 [id number] [facility] 2020-08-18 00:00:00 2020-08-18 00:00:00 Telephone [facility] Office Building One 1..114 350.1.13.10 4.2.7.2.686 [id number] [facility] 2020-08-01 00:00:00 2020-08-01 00:00:00 Patient Outreach Jaison Hernandez [facility] 1.2.114 350.1.13.10 4.2.7.2.686 [id number] [facility] 2020-06-25 00:00:00 2020-06-25 00:00:00 Refill [facility] Office Building One 1.114 350.1.13.10 4.2.7.2.686 [id number] [facility] 2020-06-03 13:14:05 2020-06-03 13:29:05 Office Visit [facility] Office Building One 1.114 350.1.13.10 4.2.7.2.686 [id number] [facility] 2020-06-03 13:15:00 2020-06-03 13:15:00 Outpatient ANNA LEWIS [facility] [id number] [facility] 2020-05-06 13:00:00 2020-05-06 13:00:00 Outpatient ANNA LEWIS [facility] [id number] [facility] 2020-04-05 09:03:34 2020-04-05 09:47:49 Office Visit Kwok [facility] Building 1.114 350.1.13.10 4.2.7.2.686 [id number] [facility] 2020-04-05 09:00:00 2020-04-05 09:00:00 Outpatient R [facility] [id number] [facility] 2020-04-05 00:00:00 2020-04-05 00:00:00 Orders Only Doctor Unassigned, [place] [facility] 1.114 350.1.13.10 4.2.7.2.686 [id number] [facility] 2020-02-03 08:51:07 2020-02-03 10:02:55 Nurse Visit Med, Medicare Wellness Tiago Kerr [facility] Building 1.114 350.1.13.10 4.2.7.2.686 [id number] [facility] 2020-02-03 09:00:00 2020-02-03 09:00:00 Outpatient R [facility] [id number] [facility] 2020-01-05 00:00:00 2020-01-05 00:00:00 Patient Secure Msg Doctor Unassigned, [place] [facility] 1.114 350.1.13.10 4.2.7.2.686 [id number] [facility] 2019-12-02 09:06:11 2019-12-02 09:46:37 Office Visit Rissa [facility] Building 1.114 350.1.13.10 4.2.7.2.686 [id number] [facility] 2019-12-02 09:00:00 2019-12-02 09:00:00 Outpatient R [facility] [id number] [facility] 2019-12-02 00:00:00 2019-12-02 00:00:00 Orders Only Doctor Unassigned, [place] [facility] 1.114 350.1.13.10 4.2.7.2.686 [id number] [facility] 2019-11-24 00:00:00 2019-11-24 00:00:00 Orders Only Doctor Unassigned, [place] [facility] 1.114 350.1.13.10 4.2.7.2.686 [id number] [facility] 2019-11-09 00:00:00 2019-11-09 00:00:00 Telephone Anna Jones [facility] Office Building One 1.114 350.1.13.10 4.2.7.2.686 [id number] [facility] 2019-11-06 09:26:06 2019-11-06 09:56:06 Office Visit Veselka, Anna [facility] Building 1.2.840.114 350.1.13.10 4.2.7.2.686 [id number] [facility] 2019-11-06 09:30:00 2019-11-06 09:30:00 Outpatient R [facility] [id number] [facility] 2019-11-03 00:00:00 2019-11-03 00:00:00 Telephone Anna Jones [facility] 1.2.840.114 350.1.13.10 4.2.7.2.686 [id number] [facility] 2019-10-31 20:44:09 2019-11-01 17:00:00 Hospital Encounter Bette Izquierdo Owen LiAbel [facility] 1.2840.114 350.1.13.10 4.2.7.2.686 [id number] [facility] 2019-10-31 20:44:09 2019-11-01 17:00:00 Inpatient U BEBOMILLIBETTE [facility] [id number] [facility] 2019-06-24 09:32:11 2019-06-24 10:32:19 Office Visit Rissa [facility] 1.2.840.114 350.1.13.10 4.2.7.2.686 [id number] [facility] 2019-06-24 00:00:00 2019-06-24 00:00:00 Orders Only Doctor Unassigned, [place] [facility] 1.2.840.114 350.1.13.10 4.2.7.2.686 [id number] [facility] 2019-02-11 10:22:29 2019-02-11 10:37:29 Bodywork Therapist Visit 2, Adc Lab Rissa Wentong [facility] 1.2.840.114 350.1.13.10 4.2.7.2.686 [id number] [facility] 2019-02-11 08:59:11 2019-02-11 10:10:21 Office Visit Real Kwok [facility] 1.2840.114 350.1.13.10 4.2.7.2.686 [id number] [facility] 2019-02-11 00:00:00 2019-02-11 00:00:00 Orders Only Doctor Unassigned, [place] [facility] 1.2840.114 350.1.13.10 4.2.7.2.686 [id number] [facility] Results Test Description Test Time Test Comments Results Result Co mments Source HEMOGLOBIN [id number] 00:00:00* Test Item Value Reference Range Interpretation Comme nts HEMOGLOBIN A1c (test code = 4548-4) 7.9 % See_Comment H [Automated messa ge] The system which generated this result transmitted reference range: 4.2-5.6 %. The reference range was not used to interpret this result as normal/abnormal. LIPID PANEL WITH REFLEX DIRECT [id number] 00:00:00* Test Item Value Reference Range Interpretation Comme nts CALC LDL CHOL (test code = 43014-4) 114 MG/DL See_Comment H [Automated messa ge] [...] code = 2085-9) 75 MG/DL See_Comment [Automated messa ge] The system which generated this result transmitted reference range: >39 MG/DL. The reference range was not used to interpret this result as normal/abnormal. RISK RATIO LDL/HDL (test code = 18145-0) 1.52 RATIO See_Comment [Automated message] The system which generated this result transmitted reference range: <3.22 RATIO. The reference range was not used to interpret this result as normal/abnormal. TRIGLYCERIDES (test code = 2571-8) 98 MG/DL See_Comment [Automated [employer] ge] The system which generated this result transmitted reference range: <150 MG/DL. The reference range was not used to interpret this result as normal/abnormal. TSH + FREE T4 [id number] 00:00:00* Test Item Value Reference Range Interpretation Comme nts FREE T4 (THYROXINE) (test code = 3024-7) 1.88 NG/DL See_Comment [Automated message] The system which generated this result transmitted reference range: 0.80-1.90 NG/DL. The reference range was not used to interpret this result as normal/abnormal. TSH, THIRD GENERATION (test code = 82366-3) 0.437 UIU/ML See_Comment [Automated [employer]] The system which generated this result transmitted reference range: 0.400-4.100 UIU/ML. The reference range was not used to interpret this result as normal/abnormal. ALBUMIN/CREATININE RATIO, RANDOM [id number] 00:00:00* Test Item Value Reference Range Interpretation Comme nts ALBUMIN, URINE, RANDOM (test code = 61669-2) <0.2 MG/DL NOT ESTAB MG/DL CALC ALBUMIN/CREAT, RND (test code = 23330-9) <5 MG/G See_Comment [Automated [employer] ge] The system which generated this result transmitted reference range: <30 MG/G. The reference range was not used to interpret this result as normal/abnormal. CREATININE, URINE, CONC. (test code = 2161-8) 38.8 MG/DL NOT ESTAB MG/DL COMPREHENSIVE METABOLIC [id number] 00:00:00* Test Item Value Reference Range Interpretation Comme nts ALBUMIN (test code = 1751-7) 4.6 G/DL See_Comment [Automated [employer] ge] The system which generated this result [...] result as normal/abnormal. CALCIUM (test code = 90745-6) 10.0 MG/DL See_Comment [Automated messa ge] The [...] as normal/abnormal. CALC GLOBULIN (test code = 16787-9) 2.8 G/DL See_Comment [Automated messa ge] The system which generated this result transmitted reference range: 1.9-3.7 G/DL. The reference range was not used to interpret this result as normal/abnormal. CARBON DIOXIDE (test code = 1963-8) 28 MEQ/L See_Comment [Automated messa ge] The [...] normal/abnormal. eGFR (2020 CKD-EPI) (test code = 14689-9) 61 ML/MIN/1.73 See_Comment [Automated messa ge] The [...] code = 1742-6) 20 U/L See_Comment [Automated messa ge] The system which generated this result transmitted reference range: 5-40 U/L. The reference range was not used to interpret this result as normal/abnormal. SODIUM (test code = 2951-2) 138 MEQ/L See_Comment [Automated messa ge] The system which generated this result transmitted reference range: 133-146 MEQ/L. The reference range was not used to interpret this result as normal/abnormal. DEXA, BONE DENSITY AXIAL SKELEDEXA, BONE DENSITY AXIAL SKELE
[2023-08-23] MEDS ORDERED: ONDANSETRON 4 MG/2 ML VIAL ONE (05:04)
[2023-08-23] MEDS ORDERED: NA CHLORIDE 0.9% 1,000 ML ONE (05:05)
[2023-08-23 05:11] LABS: Absolute Eosinophils 0.3 K/uL (0-0.5); Absolute Lymphocytes (CBC) 0.6 K/uL (0.7-4.9); Absolute Monocytes 0.4 K/uL (0.1-1.3); Absolute Neutrophil 2.8 K/uL (1.8-8.0); Basophils % 0.7 % (0-1.3); Eosinophils % 6.9 % (0-4.4); Hematocrit 40.9 % (36.0-45.0); Hemoglobin 13.6 g/dL (12.0-15.0); Lymphocytes % 14.5 % (15.3-44.8); MCH 31.6 pg (27.0-35.0); MCHC 33.3 g/dL (32.0-36.0); MCV 94.9 fL (80-100); MPV 9.5 fL (7.6-11.3); Monocytes % 10.8 % (3.3-12.3); Neutrophils % 67.1 % (41.7-73.7); Platelets 136 thou/uL (152-406); RBC Red Blood Cell Count 4.31 M/uL (3.86-4.86); Red Cell Distribution Width 14.6 % (12.1-15.2)
[2023-08-23 05:35] LABS: Albumin 3.8 g/dL (3.4-5.0); Albumin/Globulin Ratio 1.2 (1.1-1.8); Anion Gap 9.5 mEq/L (5.0-15.0); Bilirubin Total 0.5 mg/dL (0.2-1.0); Globulin 3.3 g/dL (2.3-3.5); Potassium 3.5 mEq/L (3.5-5.1); Protein, Total 7.1 g/dL (6.4-8.2); Thyroid Stimulating Hormone 2.66 uIU/mL (0.358-3.740)
[2023-08-23 06:51] LABS: Specific Gravity 1.008 (1.005-1.030); Sqamous Epithelial None Seen /HPF (None Seen); Urine Bacteria None Seen /HPF (<20); Urine Bilirubin NEGATIVE (Negative); Urine Blood Negative (Negative); Urine Clarity Clear (Clear); Urine Color Colorless (Yellow); Urine Culture Reflex Order NOT NEEDED; Urine Glucose NEGATIVE (Negative); Urine Ketones TRACE (Negative); Urine Microscopic Reflex YN ORDER UMIC; Urine Nitrite NEGATIVE (Negative); Urine Protein NEGATIVE (Negative); Urine RBC <5 /HPF (None Seen); Urine Urobilinogen Normal (Normal); Urine WBC <5 /HPF (<5); Urine pH 6.5 (5.0-7.0)
--- NOTE | 2023-08-23 07:12 | ER ---
Nurse's Notes [facility] Name: Leigh Ann Staton Age: 67 yrs Sex: Female : 1955 Arrival Date: 08/23/2023 Time: 04:21 Bed 7 Private MD: Diagnosis: Dehydration;Heat exhaustion, unspecified Presentation: 08/22 04:37 Chief complaint: Patient states: sudden onset of nausea and vomiting, followed by mild rv headache. Coronavirus screen: At this time, the client does not indicate any symptoms associated with coronavirus-19. Ebola Screen: No symptoms or risks identified at this time. Initial Sepsis Screen: Does the patient meet any 2 criteria? No. Patient's initial sepsis screen is negative. Does the patient have a suspected source of infection? No. Patient's initial sepsis screen is negative. Risk Assessment: Do you want to hurt yourself or someone else? Patient reports no desire to harm self or others. Onset of symptoms was August 23, 2023. 04:37 Method Of Arrival: Ambulatory rv 04:37 Acuity: BETO 3 rv Triage Assessment: 04:39 General: Appears uncomfortable, Behavior is calm, cooperative. Pain: Denies pain. rv Neuro: Level of Consciousness is awake, alert, obeys commands, Oriented to person, place, time, situation, Reports headache. Cardiovascular: Capillary refill < 3 seconds Patient's skin is warm and dry. Respiratory: Airway is patent Respiratory effort is even, unlabored. GI: Reports nausea, vomiting, Patient currently denies abdominal pain. : No signs and/or symptoms were reported regarding the genitourinary system. Derm: Skin is intact. Historical: - Allergies: 04:39 Sulfa (Sulfonamide Antibiotics); rv - PMHx: 04:39 diabetes mellitus; rv - PSHx: 04:39 None; rv - Immunization history:: Adult Immunizations up to date. - Social history:: Smoking status: Patient denies any tobacco usage or history of. - Family history:: not pertinent. Screenin:40 [facility] ED Fall Risk Assessment (Adult) History of falling in the last 3 months, rv including since admission No falls in past 3 months (0 pts) Score/Fall Risk Level 0 - 2 = Low Risk Oriented to surroundings, Maintained a safe environment, Educated pt \T\ family on fall prevention, incl call for assistance when getting out of bed, Assessed \T\ reinforced patient's understanding of fall precautions. Abuse screen: Denies threats or abuse. Denies injuries from another. Nutritional screening: No deficits noted. Tuberculosis screening: No symptoms or risk factors identified. Assessment: 04:45 General: Appears in no apparent distress. comfortable, Behavior is calm, cooperative, yb Reports fatigue for 0-12 hours. Pain: Denies pain. Neuro: No deficits noted. Reports weakness in generalized body. Cardiovascular: No deficits noted. Capillary refill < 3 seconds Patient's skin is warm and dry. Respiratory: Airway is patent Respiratory effort is even, unlabored, Respiratory pattern is regular, symmetrical. GI: Abdomen is flat, Insulin pump noted to RLQ and Dexcom monitor noted to LLQ. Musculoskeletal: Reports weakness in generalized body. 04:49 Reassessment: MD at bedside. yb 05:45 Reassessment: Patient and/or family updated on plan of care and expected duration. Pain ha1 level reassessed. Patient is alert, oriented x 3, equal unlabored respirations, skin warm/dry/pink. 06:40 Reassessment: Patient and/or family updated on plan of care and expected duration. Pain ha1 level reassessed. Patient is alert, oriented x 3, equal unlabored respirations, skin warm/dry/pink. Vital Signs: 04:37 Pulse 60; Resp 16; Temp 98; Pulse Ox 99% ; Weight 43.77 kg; Height 4 ft. 11 in. ; rv 04:39 BP 135 / 85; rv 05:00 BP 136 / 78; Pulse 64; Resp 17 S; Pulse Ox 97% on R/A; ha1 05:20 BP 119 / 70; Pulse 62; Resp 17 S; Pulse Ox 96% on R/A; ha1 06:20 BP 124 / 79; Pulse 60; Resp 17 S; Pulse Ox 99% on R/A; ha1 07:21 BP 120 / 73; Pulse 62; Resp 16; Pulse Ox 98% ; bp 04:37 Body Mass Index 19.49 (43.77 kg, 149.86 cm) rv ED Course: 04:22 Patient arrived in ED. [id number] 04:39 Triage completed. rv 04:39 Arm band placed on right wrist. rv 04:40 Patient has correct armband on for positive identification. Client placed on continuous rv cardiac and pulse oximetry monitoring. NIBP monitoring applied. 04:40 No provider procedures requiring assistance completed. rv 04:45 Abelino Schmidt MD is Attending Physician. sp4 05:02 CBC with Diff Sent. rv 05:02 CMP Sent. rv 05:02 Lipase Sent. rv 05:02 Inserted saline lock: 20 gauge in right forearm, using aseptic technique. Blood rv collected. 07:20 Ko Ortega, RN is Primary Nurse. bp 07:21 IV discontinued, intact, bleeding controlled, No redness/swelling at site. Pressure bp dressing applied. 07:37 Provided Education on: N/A. bp Administered Medications: 05:08 Drug: NS 0.9% IV 1000 ml IV at 1 bolus Per protocol; 1000 mL bolus Route: IV; Rate: 1 rv bolus; Site: right forearm; 07:22 Follow up: IV Status: Completed infusion; IV Intake: 1000ml bp 05:08 Drug: Ondansetron IVP 4 mg IVP once; over 2 minutes Route: IVP; Site: right forearm; rv 07:22 Follow up: Response: No adverse reaction bp Medication: 04:40 VIS not applicable for this client. rv Intake: 07:22 IV: 1000ml; Total: 1000ml. bp Outcome: 07:11 Discharge ordered by . sp4 07:37 Discharged to home ambulatory, with family, bp 07:37 Condition: stable 07:37 Discharge instructions given to patient, family, Instructed on discharge instructions, follow up and referral plans. medication usage, Demonstrated understanding of instructions, follow-up care, medications, Prescriptions given X 1, 07:38 Patient left the ED. bp Signatures: Ko Ortega, JO-ANN BUSCH bp Dalton Prasad RN RN rv Sahra Aniya jj6 Samaria Chatterjee RN RN ha1 Abelino Schmidt MD MD sp4 Kathryn Schaeffer RN RN yb
--- NOTE | 2023-08-23 07:12 | EDPHYS ---
Physician Documentation [facility] Name: Leigh Ann Staton Age: 67 yrs Sex: Female : 1955 Arrival Date: 08/23/2023 Time: 04:21 Bed 7 Private MD: ED Physician Abelino Schmidt HPI: 08/22 04:45 This 67 yrs old Female presents to ER via Ambulatory with complaints of sp4 Nausea/Vomiting, Pt c/o possible dehydration. 07:07 67-year-old female with history of type 1 diabetes with diabetic sensor and diabetic sp4 pump presents with complaint of heat exhaustion and dehydration with starting yesterday feeling unwell after working in the yard. Patient reported this morning she woke up and vomited 4 times and presented here for vomiting and concern of dehydration. Patient's blood sugar in the range of 160 to 180. Historical: - Allergies: 04:39 Sulfa (Sulfonamide Antibiotics); rv - PMHx: 04:39 diabetes mellitus; rv - PSHx: 04:39 None; rv - Immunization history:: Adult Immunizations up to date. - Social history:: Smoking status: Patient denies any tobacco usage or history of. - Family history:: not pertinent. ROS: 07:07 Constitutional: Negative for fever, chills, and weight loss, sp4 07:07 All other systems are negative, Exam: 07:07 Constitutional: This is a well developed, well nourished patient who is awake, alert, sp4 and in no acute distress. Head/Face: Normocephalic, atraumatic. Eyes: Pupils equal round and reactive to light, extra-ocular motions intact. Lids and lashes normal. Conjunctiva and sclera are not injected. Cornea within normal limits. Periorbital areas with no swelling, redness, or edema. ENT: Nares patent. No nasal discharge, no septal abnormalities noted. Tympanic membranes are normal and external auditory canals are clear. Oropharynx with no redness, swelling, or masses, exudates, or evidence of obstruction, uvula midline. Mucous membranes moist. Neck: Trachea midline, no thyromegaly or masses palpated, and no cervical lymphadenopathy. Supple, full range of motion without nuchal rigidity, or vertebral point tenderness. Chest/axilla: Normal chest wall appearance and motion. Nontender with no deformity. No lesions are appreciated. Cardiovascular: Regular rate and rhythm with a normal S1 and S2. No gallops, murmurs, or rubs. Normal PMI, no JVD. No pulse deficits. Respiratory: Lungs have equal breath sounds bilaterally, clear to auscultation and percussion. No rales, rhonchi or wheezes noted. No increased work of breathing, no retractions or nasal flaring. Abdomen/GI: Soft, with normal bowel sounds. No distension or tympany. No guarding or rebound. No evidence of tenderness throughout. Back: No spinal tenderness. No costovertebral tenderness. Skin: Warm, dry with normal turgor. Normal color with no rashes, no lesions, and no evidence of cellulitis. MS/ Extremity: Pulses equal, no cyanosis. Neurovascular intact. Full, normal range of motion. Neuro: Awake and alert, GCS 15, oriented to person, place, time, and situation. Cranial nerves II-XII grossly intact. Motor strength 5/5 in all extremities. Sensory grossly intact. Psych: Awake, alert, with orientation to person, place and time. Behavior, mood, and affect are within normal limits Vital Signs: 04:37 Pulse 60; Resp 16; Temp 98; Pulse Ox 99% ; Weight 43.77 kg; Height 4 ft. 11 in. ; rv 04:39 BP 135 / 85; rv 05:00 BP 136 / 78; Pulse 64; Resp 17 S; Pulse Ox 97% on R/A; ha1 05:20 BP 119 / 70; Pulse 62; Resp 17 S; Pulse Ox 96% on R/A; ha1 06:20 BP 124 / 79; Pulse 60; Resp 17 S; Pulse Ox 99% on R/A; ha1 07:21 BP 120 / 73; Pulse 62; Resp 16; Pulse Ox 98% ; bp 04:37 Body Mass Index 19.49 (43.77 kg, 149.86 cm) rv MDM: 04:52 Patient medically screened. sp4 07:07 Differential diagnosis: Nonspecific abd pain, gastritis, diverticulitis, viral sp4 gastroenteritis, gastroenteritis. Data reviewed: vital signs, nurses notes, lab test result(s). Consideration of Admission/Observation Escalation of care including admission/observation considered. ED course: Stable for discharge home with p.o. as needed ondansetron. 08/22 04:51 Order name: CBC with Diff; Complete Time: 06:57 sp4 08/22 04:51 Order name: CMP; Complete Time: 06:57 sp4 08/22 04:51 Order name: Lipase; Complete Time: 06:57 sp4 08/22 04:51 Order name: Urinalysis w/ reflexes; Complete Time: 06:57 sp4 08/22 04:51 Order name: TSH; Complete Time: 06:57 sp4 08/22 04:51 Order name: T4 Free; Complete Time: 06:57 sp4 08/22 04:51 Order name: IV Saline Lock; Complete Time: 05:02 sp4 08/22 04:51 Order name: Labs collected and sent; Complete Time: 05:02 sp4 Administered Medications: 05:08 Drug: NS 0.9% IV 1000 ml IV at 1 bolus Per protocol; 1000 mL bolus Route: IV; Rate: 1 rv bolus; Site: right forearm; 07:22 Follow up: IV Status: Completed infusion; IV Intake: 1000ml bp 05:08 Drug: Ondansetron IVP 4 mg IVP once; over 2 minutes Route: IVP; Site: right forearm; rv 07:22 Follow up: Response: No adverse reaction bp Disposition Summary: 08/23/23 07:11 Discharge Ordered Notes: Location: Home sp4 Problem: new sp4 Symptoms: have improved sp4 Condition: Stable sp4 Diagnosis - Dehydration sp4 - Heat exhaustion, unspecified sp4 Followup: sp4 - With: Private Physician - When: 7 - 10 days - Reason: Recheck today's complaints Discharge Instructions: - Discharge Summary Sheet sp4 - Dehydration, Adult sp4 Forms: - Patient Portal Instructions sp4 Prescriptions: - ondansetron 4 mg Oral Tablet,disintegrating - take 1 tablet ORAL route every 6 hours for 4 days PRN nausea; 30 tablet; sp4 Refills: 0, Product Selection Permitted Signatures: Dispatcher [employer] Dalton Dumont RN RN rv Abelino Schmidt MD MD sp4 Ko Ortega RN bp
[2023-08-23 07:48] VITALS: TEMP 98
[2023-08-23 08:14] VITALS: BP 120/73; O2SAT 98
== END 2023-08-23 07:38 | disposition home or self-care (01) ==
LOC: ER 04:21
DX: E86.0 Dehydration (principal); T67.5XXA Heat exhaustion, unspecified, initial encounter; E10.9 Type 1 diabetes mellitus without complications; Z96.41 Presence of insulin pump (external) (internal); Z88.2 Allergy status to sulfonamides
CPT/HCPCS: 96361; 85025; 81001; 36415; 84443; 84439; 83690; 80053; 96374; 99284; J2405; J7030

== ENCOUNTER 2024-03-10 09:12 | Emergency (ER) | payer OTHER ==
--- OUTSIDE RECORDS SUMMARY | 2024-03-10 09:16 | XMS REPORT | Continuity of Care Document ---
Author Name Unknown Address [address] [place] [address] [facility] Address 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 Role Phone Anna Jones MD Primary Care Physician Brianna Samayoa Attending Clinician Unavailable GC_GCBZW_Kadiyala_S Attending Clinician Real Agosto MD Attending Clinician Anna Jones MD Attending Clinician [phone] Doctor Unassigned, Impact Attending Clinician U navailable 2, [facility] Attending Clinician Unavailable REAL KWOK Attending Clinician Unavailable Jaison Hernandez DO Attending Clinician ANNA JONES Attending Clinician [facility] Wellness [facility] Attending Clinici an Unavailable Bette Izquierdo MD Attending Clinician Mona PRIETO, Shar Cowart Attending Clinician BETTE IZQUIERDO Attending Clinician Unavail able GC_GCBZW_Kadiyala_S Admitting Clinician Pepito Schaefer MD, Shar Cowart Admitting Clinician MONA SHAR COWART Admitting Clinician Unavailab le Payers Payer Name Policy Type Policy Number Effective Date Expirati on Date Source [facility] Marco (Regional PPO C-SNP) [id number] 2022 00:00:00 [facility] MEDICARE PART A \\T\\ B [id number] 2018 00:00:00 CONTINENTAL BENEFITS [id number] 2018 00:00:00 Problems Condition Name Condition Details Condition Category Status Onset Date Resolution Date Last Treatment Date Treating Clinician Comments Source 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 10-30 00:00: 00 [facility] Primary hypothyroi dism Primary hypothyroi dism Disease Active 2015-05 00:00: 00 [facility] 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), 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), managed as type 1 Disease Active 2014-05 00:00: 00 [facility] Pure hyperchole sterolemia Pure hyperchole sterolemia Disease Active 2014-05 00:00: 00 [facility] [id number] Acquired hypothyroi dism Problem [facility] [id number] Non-season al allergic rhinitis, unspecifie d trigger Problem [facility] [id number] Hearing difficulty of both ears Problem [facility] [id number] Constipati on, unspecifie d constipati on type Problem [facility] [id number] Calculus of gallbladde r without cholecysti tis without obstructio n Problem [facility] [id number] Adult bronchiect asis Problem [facility] [id number] COPD, moderate Problem [facility] [id number] Type 1 diabetes mellitus with hyperglyce patt Problem [facility] Allergies, Adverse Reactions, Alerts Allergy Name Allergy Type Status Severity Reaction(s) Onset Date Inactive Date Treating Clinician Comments Source Sulfa (Sulfona mide Antibiot ics) Propensi ty to adverse reaction s Active Rash 2014-05 00:00: 00 [facility] Sulfa (Sulfona mide Antibiot ics) Propensi ty to adverse reaction s Active Rash 2014-05 00:00: 00 [facility] Substanc e with sulfonam brian structur e and antibact erial mechanis m of action (substan ce) Substanc e with sulfonam brian structur e and antibact erial mechanis m of action (substan ce) Active Unknown [facility] Social History Social Habit Start Date Stop Date Quantity Comments Source History of Tobacco Use [facility] Sex Assigned At [facility] History SDOH Alcohol Std Drinks [facility] History SDOH Alcohol Binge [facility] History SDOH Alcohol Comment [place] [facility] Exposure to SARS-CoV-2 (event) 2020-07-24 00:00:00 2020-08-23 10:07:00 Not sure [facility] History of Social function 2020-01-05 00:00:00 2020-01-05 00:00:00 [facility] History SDOH Alcohol Frequency 2019-11-06 00:00:00 2019-11-06 00:00:00 1 [facility] Alcohol intake 2019-11-06 00:00:00 2019-11-06 00:00:00 0 /d [facility] Tobacco use and exposure 2019-11-06 00:00:00 2019-11-06 00:00:00 Smokeless tobacco non-user [facility] Smoking Status Start Date Stop Date Source Never Smoker [facility] Medications Ordered Medication Name Filled Medication Name Start Date Stop Date Current Medication? Ordering Clinician Indication Dosage Frequency Signature (SIG) Comments Components Source Rosuvastati n Calcium 10 MG Rosuvastati n Calcium 10 MG 2022-05 0 00:00: 00 No 1{table t} QD Rosuvastat in Calcium 10 MG LEVEMIR FLEXTOUCH U-100 INSULN 100 unit/mL (3 mL) injection 1 00:00: 00 Yes [id number] 5U INJECT 5 UNITS UNDER THE SKIN 2 (TWO) TIMES DAILY. E13.9 [facility] glucagon (GVOKE HYPOPEN 1-PACK) 1 mg/0.2 mL AtIn 09-15 00:00: 00 Yes [id number] 1mg inject 1 mg under the skin as needed (hypoglyce patt). [facility] HUMALOG KATHRINE KWIKPEN U-100 100 unit/mL inph 08-23 00:00: 00 Yes [id number] 2U inject 2-5 Units under the skin 3 (three) times daily before meals. E13.9 [facility] it[facility] LEVEMIR FLEXTOUCH U-100 INSULN 100 unit/mL (3 mL) injection 08-23 00:00: 00 06-22 00:00 :00 No [id number] 5U inject 5 Units under the skin 2 (two) times daily. E13.9 [facility] DULOXETINE 30 mg capsule 06-27 00:00: 00 Yes [id number] TAKE 1 CAPSULE BY MOUTH EVERY DAY [facility] Insulin [place], Disposable, (BD INSULIN PEN NEEDLE UF) 31 gauge x 5/16" Ndle 12-01 00:00: 00 Yes [id number] Four times daily E10.65 [facility] [place], Disposable, (BD INSULIN PEN NEEDLE UF) 31 gauge x 5/16" Ndle 12-01 00:00: 00 Yes [id number] Four times daily E10.65 [facility] Insulin Glargine (LANTUS SOLOSTAR U-100 INSULIN) 100 unit/mL (3 mL) injection 06-24 00:00: 00 08-23 00:00 :00 No [id number] 10U inject 10 Units under the skin every morning. E10.9 [facility] insulin aspart U-100 (NOVOLOG FLEXPEN U-100 INSULIN) 100 unit/mL (3 mL) injection 06-24 00:00: 00 08-23 00:00 :00 No [id number] Take up to 15 units daily according to sliding scale and carbohydra te ratio E10.9 [facility] glucagon (GLUCAGON EMERGENCY KIT, HUMAN,) 1 mg injection 2-20 00:00: 00 08-23 00:00 :00 No [id number] 1mg 1 mg by Intramuscu lar route as needed (When low glucose and unconsciou s). [facility] blood sugar diagnostic (ONETOUCH VERIO) strip 09-26 00:00: 00 08-23 00:00 :00 No [id number] Use as directed, 6 times daily, DX: E11.9 [facility] Iron 325 (65 Fe) MG Iron 325 (65 Fe) MG No 1{table t} Iron 325 (65 Fe) MG Multi Complete Multi Complete No Multi Complete HumaLOG 100 UNIT/ML HumaLOG 100 UNIT/ML No HumaLOG 100 UNIT/ML Levothyroxi ne Sodium 88 MCG Levothyroxi ne Sodium 88 MCG No Levothyrox ine Sodium 88 MCG Trelegy Ellipta 100-62.5-25 MCG/ACT Trelegy Ellipta 100-62.5-25 MCG/ACT No Trelegy Ellipta 100-62.5-2 5 MCG/ACT [facility] 24HR 55 MCG/ACT [facility] 24HR 55 MCG/ACT No 1{spray _in_eac h_nostr il} QD [facility] 24HR 55 MCG/ACT Vital Signs Vital Name Observation Time Observation Value Comments S ource height 2023-10-16 08:40:00 60.5 [in_i] Comm on [facility] weight 2023-10-16 08:40:00 99 [lb_av] Commo n [facility] bmi 2023-10-16 08:40:00 19.01 kg/m2 Comm on [facility] height 2023-07-29 13:20:00 60.5 [in_i] Comm on [facility] weight 2023-07-29 13:20:00 99.4 [lb_av] Com mon [facility] temperature 2023-07-29 13:20:00 97.4 [degF] Com mon [facility] bmi 2023-07-29 13:20:00 19.09 kg/m2 Comm on [facility] oximetry 2023-07-29 13:20:00 97 % Commo n [facility] respiratory rate 2023-07-29 13:20:00 16 /min Common [facility] blood pressure systolic 2023-07-29 13:20:00 120 mm[Hg] Common [facility] blood pressure diastolic 2023-07-29 13:20:00 67 mm[Hg] [facility] height 2023-06-12 09:20:00 60.5 [in_i] Comm on [facility] weight 2023-06-12 09:20:00 101 [lb_av] Comm on [facility] bmi 2023-06-12 09:20:00 19.4 kg/m2 Commo n [facility] height 2023-03-05 14:00:00 60.5 [in_i] Comm on [facility] weight 2023-03-05 14:00:00 101.4 [lb_av] Co mmon [facility] temperature 2023-03-05 14:00:00 97.6 [degF] Com mon [facility] bmi 2023-03-05 14:00:00 19.48 kg/m2 Comm on [facility] oximetry 2023-03-05 14:00:00 95 % Commo n [facility] respiratory rate 2023-03-05 14:00:00 18 /min Common [facility] blood pressure systolic 2023-03-05 14:00:00 134 mm[Hg] [facility] blood pressure diastolic 2023-03-05 14:00:00 78 mm[Hg] Common [facility] respiratory rate 2022-09-03 11:40:00 16 /min [facility] blood pressure systolic 2022-09-03 11:40:00 139 mm[Hg] Common [facility] blood pressure diastolic 2022-09-03 11:40:00 67 mm[Hg] Common [facility] height 2022-09-03 11:40:00 60.5 [in_i] Comm on [facility] weight 2022-09-03 11:40:00 104.6 [lb_av] Co mmon [facility] temperature 2022-09-03 11:40:00 97.8 [degF] Com mon [facility] bmi 2022-09-03 11:40:00 20.09 kg/m2 Comm on [facility] oximetry 2022-09-03 11:40:00 95 % Commo n [facility] height 2022-09-03 10:40:00 60.5 [in_i] Comm on [facility] weight 2022-09-03 10:40:00 107 [lb_av] Comm on [facility] bmi 2022-09-03 10:40:00 20.55 kg/m2 Comm on [facility] oximetry 2022-09-03 10:40:00 95 % Commo n [facility] respiratory rate 2022-09-03 10:40:00 16 /min Common [facility] blood pressure systolic 2022-09-03 10:40:00 139 mm[Hg] [facility] blood pressure diastolic 2022-09-03 10:40:00 67 mm[Hg] Common [facility] height 2022-07-13 10:40:00 60.5 [in_i] Comm on [facility] weight 2022-07-13 10:40:00 107 [lb_av] Comm on [facility] temperature 2022-07-13 10:40:00 97.3 [degF] Com mon [facility] bmi 2022-07-13 10:40:00 20.55 kg/m2 Comm on [facility] oximetry 2022-07-13 10:40:00 98 % Commo n [facility] respiratory rate 2022-07-13 10:40:00 16 /min [facility] blood pressure systolic 2022-07-13 10:40:00 128 mm[Hg] [facility] blood pressure diastolic 2022-07-13 10:40:00 72 mm[Hg] [facility] Encounters Start Date/Time End Date/Time Encounter Type Admission Type Attending Clinicians Care Facility Care Department Encounter ID Source 2023-06-12 09:41:01 Outpatient Brianna Samayoa [facility] [id number] [facility] 2023-04-09 15:15:00 Outpatient Brianna Samayoa [facility] [id number] [facility] 2022-08-29 08:38:01 Outpatient Brianna Samayoa [facility] [id number] [facility] 2022-07-13 10:40:03 Outpatient Brianna Samayoa [facility] [id number] [facility] 2023-10-16 00:00:00 2023-10-16 00:00:00 OFFICE VISIT ESTAB PT LEVEL 3 [facility] ST[facility] [id number] [facility] 2023-10-15 00:00:00 2023-10-15 00:00:00 (TEL) [facility] [id number] [facility] 2023-07-29 00:00:00 2023-07-29 00:00:00 OFFICE VISIT ESTAB PT LEVEL 3 [facility] ST[facility] [id number] [facility] 2023-07-25 00:00:00 2023-07-25 00:00:00 (WEB) [facility]LMLC ST[facility] [id number] [facility] 2023-06-18 00:00:00 2023-06-18 00:00:00 (TEL) [facility]LMLC ST[facility]C [id number] [facility] 2023-06-12 00:00:00 2023-06-12 00:00:00 (WEB) [facility]LMLC STL[facility]C [id number] [facility] 2023-06-12 00:00:00 2023-06-12 00:00:00 OFFICE VISIT ESTAB PT LEVEL 5 [facility] ST[facility] [id number] [facility] 2023-03-26 00:00:00 2023-03-26 00:00:00 Outpatient GC_GCBZW_Ka diyala_S PRIV PRIV [id number] [facility] 2023-03-25 00:00:00 2023-03-25 00:00:00 Outpatient GC_GCBZW_Ka diyala_S PRIV PRIV [id number] [facility] 2023-03-06 00:00:00 2023-03-06 00:00:00 (WEB) [facility]LMLC ST[facility] [id number] [facility] 2023-03-05 00:00:00 2023-03-05 00:00:00 OFFICE VISIT ESTAB PT LEVEL 4 [facility] ST[facility] [id number] [facility] 2022-11-29 00:00:00 2022-11-29 00:00:00 (TEL) STLMLC STL[facility]C [id number] [facility] 2022-11-22 00:00:00 2022-11-22 00:00:00 (TEL) STLMLC STLMLC [id number] [facility] 2022-09-14 00:00:00 2022-09-14 00:00:00 (TEL) STLMLC STL[facility]C [id number] [facility] 2022-09-03 00:00:00 2022-09-03 00:00:00 OFFICE VISIT ESTAB PT LEVEL 3 [facility] STL[facility]C [id number] [facility] 2022-09-03 00:00:00 2022-09-03 00:00:00 SUB ANNUAL [facility] WELLNESS VISIT STLMLC STLMLC [id number] [facility] 2022-07-13 00:00:00 2022-07-13 00:00:00 OFFICE VISIT NEW PT LEVEL 3 STLMLC STLMLC [id number] Common [facility] 2021-12-01 00:00:00 2021-12-01 00:00:00 Refill Rissa [facility] LISA[facility] 1.840.114 350.1.13.10 4.2.7.2.686 [id number] [facility] 2021-09-22 00:00:00 2021-09-22 00:00:00 Refill Rissa [facility] LISA?[facility] 1..114 350.1.13.10 4.2.7.2.686 [id number] [facility] 2021-06-18 00:00:00 2021-06-18 00:00:00 Refill Rissa [facility] BUILDING 1..114 350.1.13.10 4.2.7.2.686 [id number] [facility] 2021-05-31 00:00:00 2021-05-31 00:00:00 Telephone [facility]..114 350.1.13.10 4.2.7.2.686 [id number] [facility] 2021-04-30 00:00:00 2021-04-30 00:00:00 Refill Rissa [facility] BUILDING 1.84.114 350.1.13.10 4.2.7.2.686 [id number] [facility] 2020-09-23 00:00:00 2020-09-23 00:00:00 Telephone [facility] 1.2.840.114 350.1.13.10 4.2.7.2.686 [id number] [facility] 2020-09-15 00:00:00 2020-09-15 00:00:00 Orders Only Doctor Unassigned, Impact [facility] 1.2.840.114 350.1.13.10 4.2.7.2.686 [id number] [facility] 2020-09-14 00:00:00 2020-09-14 00:00:00 Telephone Real Kwok [facility] 1.2.840.114 350.1.13.10 4.2.7.2.686 [id number] [facility] 2020-09-02 00:00:00 2020-09-02 00:00:00 Orders Only Doctor Unassigned, Impact [facility] 1.2.840.114 350.1.13.10 4.2.7.2.686 [id number] [facility] 2020-08-24 08:06:16 2020-08-24 08:21:16 In Tube Conversion Technician Visit 2, Adc Lab Anna Jones [facility] 1.2.840.114 350.1.13.10 4.2.7.2.686 [id number] [facility] 2020-08-24 08:15:00 2020-08-24 08:15:00 Outpatient R [facility] [id number] [facility] 2020-08-24 00:00:00 2020-08-24 00:00:00 Orders Only Doctor Unassigned, Impact [facility] 1.2.840.114 350.1.13.10 4.2.7.2.686 [id number] [facility] 2020-08-23 10:09:33 2020-08-23 11:01:17 Office Visit Real Kwok [facility] nal Building 1.840.114 350.1.13.10 4.2.7.2.686 [id number] [facility] 2020-08-23 10:00:00 2020-08-23 10:00:00 [facility] [id number] [facility] 2020-08-23 00:00:00 2020-08-23 00:00:00 Telephone Yuanshahzad [facility] Office Building One 1.840.114 350.1.13.10 4.2.7.2.686 [id number] [facility] 2020-08-18 00:00:00 2020-08-18 00:00:00 Telephone Job [facility] Office Building One 1.840.114 350.1.13.10 4.2.7.2.686 [id number] [facility] 2020-08-01 00:00:00 2020-08-01 00:00:00 Patient Outreach Jaison Hernandez [facility] 1.840.114 350.1.13.10 4.2.7.2.686 [id number] [facility] 2020-06-25 00:00:00 2020-06-25 00:00:00 Refill oJb [facility] One 1.2840.114 350.1.13.10 4.2.7.2.686 [id number] [facility] 2020-06-03 13:14:05 2020-06-03 13:29:05 Office Visit Cyndymiranda Anna [facility] Office Building One 1.840.114 350.1.13.10 4.2.7.2.686 [id number] [facility] 2020-06-03 13:15:00 2020-06-03 13:15:00 Outpatient ANNA LEWIS [facility] [id number] [facility] 2020-05-06 13:00:00 2020-05-06 13:00:00 Outpatient ANNA LEWIS [facility] [id number] [facility] 2020-04-05 09:03:34 2020-04-05 09:47:49 Office Visit Rissa [facility] Building 1.840.114 350.1.13.10 4.2.7.2.686 [id number] [facility] 2020-04-05 09:00:00 2020-04-05 09:00:00 Outpatient R RISSA [facility] [id number] [facility] 2020-04-05 00:00:00 2020-04-05 00:00:00 Orders Only Doctor Unassigned, Impact [facility] 1.284.114 350.1.13.10 4.2.7.2.686 [id number] [facility] 2020-02-03 08:51:07 2020-02-03 10:02:55 Nurse Visit Med, Medicare Wellness Tiago Kerr Anna Jones [facility] Building 1.2.840.114 350.1.13.10 4.2.7.2.686 [id number] [facility] 2020-02-03 09:00:00 2020-02-03 09:00:00 Outpatient R [facility] [id number] [facility] 2020-01-05 00:00:00 2020-01-05 00:00:00 Patient Secure Msg Doctor Unassigned, Impact [facility] 1.2.114 350.1.13.10 4.2.7.2.686 [id number] [facility] 2019-12-02 09:06:11 2019-12-02 09:46:37 Office Visit Rissa [facility] Building 1.2.840.114 350.1.13.10 4.2.7.2.686 [id number] [facility] 2019-12-02 09:00:00 2019-12-02 09:00:00 Outpatient R RISSA [facility] [id number] [facility] 2019-12-02 00:00:00 2019-12-02 00:00:00 Orders Only Doctor Unassigned, Impact [facility] 1.2.840.114 350.1.13.10 4.2.7.2.686 [id number] [facility] 2019-11-24 00:00:00 2019-11-24 00:00:00 Orders Only Doctor Unassigned, Impact [facility] 1.2.840.114 350.1.13.10 4.2.7.2.686 [id number] [facility] 2019-11-09 00:00:00 2019-11-09 00:00:00 Telephone Job [facility] Office Building One 1.2.840.114 350.1.13.10 4.2.7.2.686 [id number] [facility] 2019-11-06 09:26:06 2019-11-06 09:56:06 Office Visit Anna Jones [facility] Building 1.2.840.114 350.1.13.10 4.2.7.2.686 [id number] [facility] 2019-11-06 09:30:00 2019-11-06 09:30:00 Outpatient R ANNA JONES [facility] [id number] [facility] 2019-11-03 00:00:00 2019-11-03 00:00:00 Telephone Veselka, Anna Edward [facility] 1.2.840.114 350.1.13.10 4.2.7.2.686 [id number] [facility] 2019-10-31 20:44:09 2019-11-01 17:00:00 Hospital Encounter BessyjoanamasonBette Shar GenaAbel [facility] 1.2.840.114 350.1.13.10 4.2.7.2.686 [id number] [facility] 2019-10-31 20:44:09 2019-11-01 17:00:00 Inpatient U MARIE IZQUIERDOAL [facility] [id number] [facility] 2019-06-24 09:32:11 2019-06-24 10:32:19 Office Visit Rissa [facility] 1.2.840.114 350.1.13.10 4.2.7.2.686 [id number] [facility] 2019-06-24 00:00:00 2019-06-24 00:00:00 Orders Only Doctor Unassigned, Impact [facility] 1.2.840.114 350.1.13.10 4.2.7.2.686 [id number] [facility] 2019-02-11 10:22:29 2019-02-11 10:37:29 In Tube Conversion Technician Visit 2, Adc Lab Rissa [facility] 1.2.840.114 350.1.13.10 4.2.7.2.686 [id number] [facility] 2019-02-11 08:59:11 2019-02-11 10:10:21 Office Visit Rissa [facility] 1.2.840.114 350.1.13.10 4.2.7.2.686 [id number] [facility] 2019-02-11 00:00:00 2019-02-11 00:00:00 Orders Only Doctor Unassigned, Impact [facility] 1.2.840.114 350.1.13.10 4.2.7.2.686 [id number] [facility] Results Test Description Test Time Test Comments Results Result Co mments Source DEXA, BONE DENSITY AXIAL SKELEDEXA, BONE DENSITY AXIAL SKELE
[2024-03-10] MEDS ORDERED: MECLIZINE HCL 12.5 MG TAB ONE (09:49)
[2024-03-10 10:07] LABS: Absolute Eosinophils 0.1 K/uL (0-0.5); Absolute Lymphocytes (CBC) 0.5 K/uL (0.7-4.9); Absolute Monocytes 0.4 K/uL (0.1-1.3); Absolute Neutrophil 3.6 K/uL (1.8-8.0); Basophils % 0.7 % (0-1.3); Eosinophils % 1.5 % (0-4.4); Hematocrit 42.5 % (36.0-45.0); Hemoglobin 14.2 g/dL (12.0-15.0); Lymphocytes % 11.9 % (15.3-44.8); MCH 32.4 pg (27.0-35.0); MCHC 33.4 g/dL (32.0-36.0); MCV 96.8 fL (80-100); MPV 7.9 fL (7.6-11.3); Neutrophils % 76.9 % (41.7-73.7); Nucleated Red Blood Cells % 0.1 % (0-0); Platelets 203 thou/uL (152-406); RBC Red Blood Cell Count 4.39 M/uL (3.86-4.86); Red Cell Distribution Width 13.8 % (12.1-15.2)
[2024-03-10 10:11] LABS: PT Prothrombin Time 11.1 SECONDS (9.4-12.5); PTT, Activated Partial Thromb 34.6 SECONDS (24.3-36.9); Protime INR 0.99
--- NOTE | 2024-03-10 10:11 | RAD REPORT ---
EXAM: CT brain without contrast HISTORY: Dizziness COMPARISON: None TECHNIQUE: Multiple contiguous axial images were obtained and a CT of the brain without contrast. Sagittal and coronal reformats were performed. Automated exposure control, adjustment of the mA and/or kV according to patient size, and/or itera tive reconstruction. Unless otherwise specified, incidental findings do not require dedicated imaging follow-u FINDINGS: An intracranial bleed is not seen Ventricles are normal caliber No extra-axial fluid collection noted No significant hypodensity within the brain No fluid within the visualized sinuses or mastoids noted. IMPRESSION: No acute intracranial abnormality noted. If the patient's symptoms persist MRI of the brain would be recommended. from the emergency room was notified at 10:07 AM March 10, 2024
--- NOTE | 2024-03-10 10:23 | RAD REPORT ---
EXAMINATION: CTA HEAD CLINICAL INDICATION: Vertigo. TECHNIQUE: Axial CT images were obtained through the head after 100 cc Isovue-370 intravenous contras t utilizing angiographic protocol with 3D post-processing (maximum intensity projection images, volume rendered images and/or shaded surface rendered images). One or more of the following dose red uction techniques were used: Automated exposure control, adjustment of the mA and/or kV according to patient size, and/or iterative reconstruction. Unless otherwise specified, incidental findings do not require dedicated imaging follow-up. COMPARISON: None FINDINGS: Distal internal carotid, basilar, anterior cerebral, middle cerebral and posterior cerebral arteries do not demonstrate a significant stenosis origin right posterior cerebral artery Dolichoectasia vertebral basilar artery An aneurysm not noted. No large vessel occlusion IMPRESSION: No acute vascular abnormality displayed
--- NOTE | 2024-03-10 10:23 | RAD REPORT ---
EXAMINATION: Neck Angio CLINICAL INDICATION: Vertigo TECHNIQUE: Axial CT images were obtained from the aortic arch to the skull base after intravenous adm inistration of 100 cc Isovue-370 utilizing angiographic protocol. Multiplanar reformats, as well as 3D post-processing (maximum intensity projection images, volume rendered images and/or shaded surface rendered images) were generated and reviewed. One or more of the following dose reduction techniques were used: Automated exposure control, adjustment of the mA and/or kV according to patient size, and/or iterative reconstruction. Unless otherwise specified, incidental findings do not require dedicated imaging follow-up. COMPARISON: No prior exam. FINDINGS: The visualized great vessels do not demonstrate a significant abnormality Common carotid, internal carotid and external carotid arteries bilaterally are unremarkable. Vertebral arteries normal caliber. No significant stenosis noted. A dissection is not seen. Methods for NASCET criteria: Mild stenosis, 0% to 49%; Moderate stenosis 50% to 69%; Severe stenosis, 70% to 99% IMPRESSION: No acute vascular abnormality displayed
[2024-03-10 10:24] LABS: Albumin 3.6 g/dL (3.4-5.0); Anion Gap 7.6 mEq/L (5.0-15.0); Bilirubin Direct 0.2 mg/dL (0-0.2); Bilirubin Indirect, Calculated 0.4 mg/dL (0.2-0.8); Bilirubin Total 0.6 mg/dL (0.2-1.0); Globulin 3.7 g/dL (2.3-3.5); Potassium 3.6 mEq/L (3.5-5.1); Protein, Total 7.3 g/dL (6.4-8.2); Troponin High Sensitivity 4.3 pg/mL (<58.9)
--- NOTE | 2024-03-10 11:00 | RAD REPORT ---
Procedure: Chest Single View HISTORY: Chest pain COMPARISON: September 2023 FINDINGS: The lungs appear clear of acute infiltrate. Pectus deformity. No significant pleural effusion noted. The heart is mildly to moderately enlarged. IMPRESSION: No acute abnormality is displayed.
[2024-03-10] MEDS ORDERED: ONDANSETRON 4 MG/2 ML VIAL ONE (11:22)
[2024-03-10] MEDS ORDERED: NA CHLORIDE 0.9% 1,000 ML ONE (11:25)
--- NOTE | 2024-03-10 12:37 | EDPHYS ---
Physician Documentation [facility] Name: Leigh Ann Staton Age: 68 yrs Sex: Female : 1955 Arrival Date: 03/10/2024 Time: 09:12 Bed 8 Private MD: ED Physician Vasile Mann HPI: 03/10 11:22 This 68 yrs old Female presents to ER via Ambulatory with complaints of Vomiting, rt Dizziness. 11:22 Patient presents to the ED with dizziness described as room spinning as well as nausea, rt vomiting with gait instability starting about 830 this morning. Denies numbness, weakness, acute complaints. Symptoms are moderate in severity, no other aggravating or alleviating factors. Historical: - Allergies: 09:27 Sulfa (Sulfonamide Antibiotics); hb - PMHx: :27 diabetes mellitus; hb - Immunization history:: Adult Immunizations up to date. - Infectious Disease History:: Denies. - Family history:: not pertinent. - Social history:: Smoking status: Patient denies any tobacco usage or history of. ROS: 11:22 Constitutional: Negative for fever, chills, and weight loss, Cardiovascular: Negative rt for chest pain, palpitations, and edema, Respiratory: Negative for shortness of breath, cough, wheezing, and pleuritic chest pain, MS/Extremity: Negative for injury and deformity, Skin: Negative for injury, rash, and discoloration, Psych: Negative for depression, anxiety, suicide ideation, homicidal ideation, and hallucinations, 11:22 Abdomen/GI: Positive for nausea and vomiting, Negative for abdominal pain, 11:22 Neuro: Positive for dizziness, gait disturbance, Exam: 11:22 Constitutional: This is a well developed, well nourished patient who is awake, alert, rt and in no acute distress. Head/Face: Normocephalic, atraumatic. Chest/axilla: Normal chest wall appearance and motion. Nontender with no deformity. No lesions are appreciated. Cardiovascular: Regular rate and rhythm with a normal S1 and S2. No gallops, murmurs, or rubs. Normal PMI, no JVD. No pulse deficits. Respiratory: Lungs have equal breath sounds bilaterally, clear to auscultation and percussion. No rales, rhonchi or wheezes noted. No increased work of breathing, no retractions or nasal flaring. Abdomen/GI: Soft, non-tender, with normal bowel sounds. No distension or tympany. No guarding or rebound. No evidence of tenderness throughout. Skin: Warm, dry with normal turgor. Normal color with no rashes, no lesions, and no evidence of cellulitis. MS/ Extremity: Pulses equal, no cyanosis. Neurovascular intact. Full, normal range of motion. 11:22 Eyes: Disconjugate gaze, congenital per patient, extraocular muscles are intact, no nystagmus, head impulse and test of skew negative. 11:22 ECG was reviewed by the Attending Physician. 11:22 Neuro: Cranial nerves II through XII intact, speech normal, no ataxia on [id number], strength and sensation intact in upper and lower extremities, Vital Signs: 09:16 BP 131 / 81; Pulse 73; Resp 16; Temp 97(TE); Pulse Ox 97% on R/A; Weight 39.92 kg; hb Height 4 ft. 11 in. ; Pain 5/10; 12:31 BP 141 / 85; Pulse 75; Resp 16; Pulse Ox 97% ; bp 09:16 Body Mass Index 17.77 (39.92 kg, 149.86 cm) hb 09:16 Pain Scale: Adult hb MDM: 09:23 Medical Screening Exam initiated rt 13:40 Differential diagnosis: Peripheral vertigo, central vertigo, dehydration. Data rt reviewed: vital signs, nurses notes, lab test result(s), EKG, radiologic studies. Consideration of Admission/Observation Escalation of care including admission/observation considered. Lower suspicion for acute CVA. I did discuss the low possibility of CVA with the patient, as she has resolution of symptoms with meclizine, fluids, I do not believe that she requires admission for CVA workup at this time. Patient is in agreement with this plan, will return for worsening symptoms.. I considered the following discharge prescriptions or medication management in the emergency department Medications were administered in the Emergency Department. See MAR. Independent interpretation of the following test(s) in the Emergency Department CT Scan: My interpretation is No intracranial hemorrhage seen on interpretation of CT scan images. Care significantly affected by the following chronic conditions: Diabetes. Counseling: I had a detailed discussion with the patient and/or guardian regarding the historical points, exam findings, and any diagnostic results supporting the discharge/admit diagnosis, lab results, radiology results, the need for outpatient follow up, to return to the emergency department if symptoms worsen or persist or if there are any questions or concerns that arise at home. Response to treatment: the patient's symptoms have resolved after treatment. 03/10 09:46 Order name: Basic Metabolic Panel; Complete Time: 10:25 rt 03/10 09:46 Order name: CBC with Diff; Complete Time: 10:25 rt 03/10 09:46 Order name: Hepatic Function; Complete Time: 10:25 rt 03/10 09:46 Order name: High Sensitivity Troponin; Complete Time: 10:25 rt 03/10 09:46 Order name: Protime (+inr); Complete Time: 10:25 rt 03/10 09:46 Order name: Ptt, Activated; Complete Time: 10:25 rt 03/10 10:33 Order name: CREATININE WHOLE BLOOD; Complete Time: 10:36 EDMS 03/10 09:46 Order name: CT Neck Angio; Complete Time: 10:25 rt 03/10 09:46 Order name: CT Stroke Brain w/o Contrast; Complete Time: 10:25 rt 03/10 09:46 Order name: Stroke CXR 1 View; Complete Time: 11:00 rt 03/10 09:56 Order name: Head angio; Complete Time: 10:25 EDMS 03/10 09:46 Order name: Accucheck; Complete Time: 09:47 rt 03/10 09:46 Order name: Cardiac monitoring; Complete Time: 09:47 rt 03/10 09:46 Order name: EKG - Nurse/Tech; Complete Time: 10:07 rt 03/10 09:46 Order name: IV Saline Lock; Complete Time: 10:19 rt 03/10 09:46 Order name: Labs collected and sent; Complete Time: 10:19 rt 03/10 09:46 Order name: NPO; Complete Time: 09:47 rt 03/10 09:46 Order name: O2 Per Protocol; Complete Time: 09:47 rt 03/10 09:46 Order name: O2 Sat Monitoring; Complete Time: 09:47 rt 03/10 09:46 Order name: Stroke Swallow Screen; Complete Time: 09:47 rt EC:22 Rate is 67 beats/min. Rhythm is regular, Normal Sinus Rhythm with No ectopy. Left axis rt deviation noted. OH interval is normal. QRS interval is normal. QT interval is normal. No Q waves. No ST changes noted. Interpreted by me. Administered Medications: 09:58 Drug: Meclizine PO 50 mg PO once Route: PO; iw 11:28 Follow up: Response: No adverse reaction bp 11:05 Drug: Ondansetron IVP 4 mg IVP once; over 2 minutes Route: IVP; Site: right forearm; bp 11:28 Follow up: Response: No adverse reaction bp 11:27 Drug: NS 0.9% IV 1000 ml IV at 1000 ml once; to be given as a bolus over 60 minutes bp Route: IV; Rate: 1000 ml; Site: right forearm; 12:54 Follow up: IV Status: Completed infusion bp Disposition Summary: 03/10/24 12:37 Discharge Ordered Notes: Location: Home rt Problem: new rt Symptoms: are resolved rt Condition: Stable rt Diagnosis - Benign paroxysmal vertigo rt Followup: rt - With: Private Physician - When: 2 - 3 days - Reason: Discharge Instructions: - Discharge Summary Sheet rt - Benign Positional Vertigo rt Forms: - Medication Reconciliation Form rt - Antibiotic Education rt - Prescription Opioid Use rt - Patient Portal Instructions rt - Leadership Thank You Letter rt Prescriptions: - Meclizine 25 mg Oral tablet - take 2 tablet ORAL route every 8 hours As needed; 30 tablet; Refills: 0, rt Product Selection Permitted Signatures: Dispatcher [employer] Stefani Hill RN Suzan Richmond RN RN Ko Howard RN RN bp [place], Ryan, MD MD rt Corrections: (The following items were deleted from the chart) 09:47 09:47 Chest Single View+[email or web address] ordered. EDMS EDMS
--- NOTE | 2024-03-10 12:37 | ER ---
Nurse's Notes [facility] Name: Leigh Ann Staton Age: 68 yrs Sex: Female : 1955 Arrival Date: 03/10/2024 Time: 09:12 Bed 8 Private MD: Diagnosis: Benign paroxysmal vertigo Presentation: 03/10 09:16 Chief complaint: N/V, dizziness, and headache that started after breakfast today. hb Coronavirus screen: At this time, the client does not indicate any symptoms associated with coronavirus-19. Ebola Screen: No symptoms or risks identified at this time. Initial Sepsis Screen: Does the patient meet any 2 criteria? No. Patient's initial sepsis screen is negative. Does the patient have a suspected source of infection? No. Patient's initial sepsis screen is negative. Risk Assessment: Do you want to hurt yourself or someone else? Patient reports no desire to harm self or others. Onset of symptoms was March 10, 2024. 09:16 Method Of Arrival: Ambulatory hb 09:16 Acuity: BETO 3 hb Triage Assessment: :30 General: Appears in no apparent distress. Behavior is cooperative, appropriate for age, bp anxious. Pain: Denies pain. EENT: No deficits noted. Neuro: Reports dizziness. Cardiovascular: No deficits noted. Respiratory: No deficits noted. GI: Reports nausea. : No signs and/or symptoms were reported regarding the genitourinary system. Derm: No deficits noted. Musculoskeletal: No deficits noted. Historical: - Allergies: 09:27 Sulfa (Sulfonamide Antibiotics); hb - PMHx: :27 diabetes mellitus; hb - Immunization history:: Adult Immunizations up to date. - Infectious Disease History:: Denies. - Family history:: not pertinent. - Social history:: Smoking status: Patient denies any tobacco usage or history of. Screenin:30 [facility] ED Fall Risk Assessment (Adult) History of falling in the last 3 months, hb including since admission No falls in past 3 months (0 pts) Confusion or Disorientation No (0 pts) Intoxicated or Sedated No (0 pts) Impaired Gait Yes (1 pt) Mobility Assist Device Used Yes (1 pt) Altered Elimination No (0 pt) Score/Fall Risk Level 3 or more points = High Risk Oriented to surroundings, Maintained a safe environment, Educated pt \T\ family on fall prevention, incl call for assistance when getting out of bed, Assessed \T\ reinforced patient's understanding of fall precautions. Abuse screen: Denies threats or abuse. Denies injuries from another. Nutritional screening: No deficits noted. Tuberculosis screening: No symptoms or risk factors identified. Assessment: 10:02 General: Appears in no apparent distress. Behavior is calm, cooperative. Pain: Denies hb pain. Neuro: Level of Consciousness is awake, alert, obeys commands, Oriented to person, place, time, situation, Reports dizziness, headache. Cardiovascular: Patient's skin is warm and dry. Respiratory: Respiratory effort is even, unlabored, Respiratory pattern is regular, symmetrical. GI: Reports nausea, vomiting. : EENT: No signs and/or symptoms were reported regarding the EENT system. Derm: Skin is pink, warm \T\ dry. Musculoskeletal: No signs and/or symptoms reported regarding the musculoskeletal system. Vital Signs: 09:16 BP 131 / 81; Pulse 73; Resp 16; Temp 97(TE); Pulse Ox 97% on R/A; Weight 39.92 kg; hb Height 4 ft. 11 in. ; Pain 5/10; 12:31 BP 141 / 85; Pulse 75; Resp 16; Pulse Ox 97% ; bp 09:16 Body Mass Index 17.77 (39.92 kg, 149.86 cm) hb 09:16 Pain Scale: Adult hb ED Course: 09:14 Patient arrived in ED. im 09:17 Ko Ortega, RN is Primary Nurse. bp 09:17 Vasile Mann MD is Attending Physician. rt 09:28 Arm band placed on. hb 09:31 Patient has correct armband on for positive identification. hb 09:37 Triage completed. hb 09:59 Initial lab(s) drawn, by ED staff, sent to lab. EKG done, by ED staff, reviewed by Vasile Mann MD. Inserted saline lock: 20 gauge in right forearm, using aseptic technique. Blood collected. Flushed with 10 mL NS. 10:[address] via wheelchair. hb 10:06 CT Stroke Brain w/o Contrast In Process Unspecified. EDMS 10:14 CT Neck Angio In Process Unspecified. EDMS 10:14 Head angio In Process Unspecified. EDMS 10:20 Stroke CXR 1 View In Process Unspecified. EDMS 10:40 Provided Education on: use of call light. hb 12:48 No provider procedures requiring assistance completed. IV discontinued, intact, bp bleeding controlled, No redness/swelling at site. Pressure dressing applied. Administered Medications: 09:58 Drug: Meclizine PO 50 mg PO once Route: PO; iw 11:28 Follow up: Response: No adverse reaction bp 11:05 Drug: Ondansetron IVP 4 mg IVP once; over 2 minutes Route: IVP; Site: right forearm; bp 11:28 Follow up: Response: No adverse reaction bp 11:27 Drug: NS 0.9% IV 1000 ml IV at 1000 ml once; to be given as a bolus over 60 minutes bp Route: IV; Rate: 1000 ml; Site: right forearm; 12:54 Follow up: IV Status: Completed infusion bp Medication: 10:40 VIS not applicable for this client. hb Outcome: 12:37 Discharge ordered by MD. rt 12:48 Discharged to home ambulatory, with family, bp 12:48 Condition: stable 12:48 Discharge instructions given to patient, Instructed on discharge instructions, follow up and referral plans. medication usage, Demonstrated understanding of instructions, follow-up care, medications, Prescriptions given X 1, 12:54 Patient left the ED. bp Signatures: Dispatcher [employer] EDMS Stefani Jennings RN RN iw Suzan Colón RN RN Ko Howard, RN RN Vasile Mahmood MD MD rt Dionna Navarro
[2024-03-10 14:30] VITALS: O2SAT 97
[2024-03-10 14:32] VITALS: BP 131/81; TEMP 97
--- NOTE | 2024-03-12 11:58 | EKG ---
Test Date: 2024-03-10 Test Time: 09:56:01 Seed Collector: HB MEASUREMENT RESULTS: Intervals: Rate: 67 IL: 164 QRSD: 68 QT: 420 QTc: 443 [place]: P: 55 IL: 164 QRS: -53 T: 68 INTERPRETIVE STATEMENTS: Normal sinus rhythm Left axis deviation Nonspecific T wave abnormality Abnormal ECG Compared to ECG 06/10/2023 10:09:53 Left-axis deviation now present T-wave abnormality now present Prolonged QT interval no longer present Electronically Signed On 03-12-24 11:53:22 CDT by Rolando Hebert
== END 2024-03-10 12:54 | disposition home or self-care (01) ==
LOC: ER 09:12
DX: H81.10 Benign paroxysmal vertigo, unspecified ear (principal); R11.2 Nausea with vomiting, unspecified; E11.9 Type 2 diabetes mellitus without complications
CPT/HCPCS: 93005; 85025; 80048; 36415; 85610; 82565; 80076; 85730; 84484; 70496; 70498; 70450; 71045; Q9967; J8597; J2405; J7030; 96361; 96374; 99285

== ENCOUNTER 2024-10-07 06:19 | Emergency (ER) | payer OTHER ==
--- OUTSIDE RECORDS SUMMARY | 2024-10-07 06:23 | XMS REPORT | Continuity of Care Document ---
Author Name Unknown Address [address] [facility] [place] [address] [facility] Address [address] [facility] [address] [place] [address] Care Team Providers Care Word Processor Technician Name Role Phone Anna Jones MD Primary Care Physician Brianna Samayoa Attending Clinician Unavailable GC_GCBZW_Kadiyala_S Attending Clinician Unavaila nelson Kwok MD, Real Attending Clinician [phone] Anna Jones MD Attending Clinician + [phone] Doctor Unassigned, [place] Attending Clinician U navailable 2, Ad[facility] Attending Clinician Unavailable REAL KWOK Attending Clinician Unavailable Jaison Hernandez DO Attending Clinician ANNA JONES Attending Clinician Unavamaggie lable Med, Medicare Wellness [facility] Attending Clinici an Unavailable Bette Izquierdo MD Attending Clinician Shar Dunn MD Attending Clinician [phone] BETTE IZQUIERDO Attending Clinician Unavail able GC_GCBZW_Kadiyala_S Admitting Clinician Shar Collins MD Admitting Clinician [phone] SHAR DUNN Admitting Clinician Ginny le Payers Payer Name Policy Type Policy Number Effective Date Expirati on Date Source [facility] Gold (Regional PPO C-SNP) [id number] 2022 00:00:00 [facility] MEDICARE PART A \\T\\ B [id number] 2018 00:00:00 CONTINENTAL BENEFITS [id number] 2018 00:00:00 Problems Condition Name Condition Details [...] Active 2014-05 00:00: 00 [facility] [id number] Acquired hypothyroi dism Problem [facility] [id number] Non-season al allergic rhinitis, unspecifie d trigger Problem [facility] [id number] Hearing difficulty of both ears Problem [facility] [id number] Constipati on, unspecifie d constipati on type Problem [facility] [id number] Calculus of gallbladde r without cholecysti tis without obstructio n Problem [facility] [id number] Adult bronchiect asis Problem [facility] [id number] COPD, moderate Problem [facility] [id number] Mixed hyperlipid emia Problem [facility] [id number] Type 1 diabetes mellitus with hyperglyce patt Problem [facility] Allergies, Adverse Reactions, Alerts Allergy Name Allergy Type Status Severity Reaction(s) Onset Date Inactive Date Treating Clinician Comments Source Sulfa (Sulfona mide Antibiot ics) Propensi ty to adverse reaction s Active Rash 2014-05 00:00: 00 [facility] Sulfa (Sulfona mide Antibiot ics) Propensi ty to adverse reaction s Active Rash 2014-05 00:00: 00 [facility] Substanc e with sulfonam brian structur e and antibact erial mechanis m of action (substan ce) Substanc e with sulfonam brian structur e and antibact erial mechanis m of action (substan ce) Active Unknown [facility] Social History Social Habit Start Date Stop Date Quantity Comments Source History SDOH Alcohol Std Drinks [facility] History SDOH Alcohol Binge [facility] History SDOH Alcohol Comment [facility] Sexual orientation [facility] History of Tobacco Use [facility] Sex Assigned At [facility] Exposure to SARS-CoV-2 (event) 2020-07-24 00:00:00 2020-08-23 10:07:00 Not sure [facility] History of Social function 2020-01-05 00:00:00 2020-01-05 00:00:00 [facility] History SDOH Alcohol Frequency 2019-11-06 00:00:00 2019-11-06 00:00:00 1 [facility] Alcohol intake 2019-11-06 00:00:00 2019-11-06 00:00:00 0 /d [facility] Tobacco use and exposure 2019-11-06 00:00:00 2019-11-06 00:00:00 Smokeless tobacco non-user [facility] Smoking Status Start Date Stop Date Source Never Smoker [facility] Medications Ordered Medication Name Filled Medication Name Start Date Stop Date Current Medication? Ordering Clinician Indication Dosage Frequency Signature (SIG) Comments Components Source Mupirocin 2 % Mupirocin 2 % 3-04 00:00: 00 No 1{appli cation} BID Mupirocin 2 % Rosuvastati n Calcium 10 MG Rosuvastati n Calcium 10 MG 2022-05 0-11 00:00: 00 No 1{table t} QD Rosuvastat in Calcium 10 MG LEVEMIR FLEXTOUCH U-100 INSULN 100 unit/mL (3 mL) injection 06-22 00:00: 00 Yes [id number] 5U INJECT 5 UNITS UNDER THE SKIN 2 (TWO) TIMES DAILY. E13.9 [facility] glucagon (GVOKE HYPOPEN 1-PACK) 1 mg/0.2 mL AtIn 09-15 00:00: 00 Yes [id number] 1mg inject 1 mg under the skin as needed (hypoglyce patt). [facility] HUMALOG KATHRINE KWIKPEN U-100 100 unit/mL inph 08-23 00:00: 00 Yes [id number] 2U inject 2-5 Units under the skin 3 (three) times daily before meals. E13.9 [facility] LEVEMIR FLEXTOUCH U-100 INSULN 100 unit/mL (3 mL) injection 08-23 00:00: 00 06-22 00:00 :00 No [id number] 5U inject 5 Units under the skin 2 (two) times daily. E13.9 [facility] DULOXETINE 30 mg capsule 06-27 00:00: 00 Yes [id number] TAKE 1 CAPSULE BY MOUTH EVERY DAY [facility] Insulin [place], Disposable, (BD INSULIN PEN NEEDLE UF) 31 gauge x 5/16" Ndle 12-01 00:00: 00 Yes [id number] Four times daily E10.65 [facility] Insulin [place], Disposable, (BD INSULIN PEN NEEDLE UF) 31 gauge x 5/16" Ndle 708 00:00: 00 Yes [id number] Four times daily E10.65 [facility] Insulin Glargine (LANTUS SOLOSTAR U-100 INSULIN) 100 unit/mL (3 mL) injection 1- 00:00: 00 08-23 00:00 :00 No [id number] 10U inject 10 Units under the skin every morning. E10.9 [facility] insulin aspart U-100 (NOVOLOG FLEXPEN U-100 INSULIN) 100 unit/mL (3 mL) injection 1 00:00: 00 08-23 00:00 :00 No [id number] Take up to 15 units daily according to sliding scale and carbohydra te ratio E10.9 [facility] glucagon (GLUCAGON EMERGENCY KIT, HUMAN,) 1 mg injection 2 00:00: 00 08-23 00:00 :00 No [id number] 1mg 1 mg by Intramuscu lar route as needed (When low glucose and unconsciou s). [facility] blood sugar diagnostic (ONETOUCH VERIO) strip 09-26 00:00: 00 08-23 00:00 :00 No [id number] Use as directed, 6 times daily, DX: E11.9 [facility] Iron 325 (65 Fe) MG Iron 325 (65 Fe) MG No 1{table t} Iron 325 (65 Fe) MG Multi Complete Multi Complete No Multi Complete HumaLOG 100 UNIT/ML HumaLOG 100 UNIT/ML No HumaLOG 100 UNIT/ML Levothyroxi ne Sodium 88 MCG Levothyroxi ne Sodium 88 MCG No Levothyrox ine Sodium 88 MCG Breztri Aerosphere 160-9-4.8 MCG/ACT Breztri Aerosphere 160-9-4.8 MCG/ACT No Breztri Aerosphere 160-9-4.8 MCG/ACT Nasacort Allergy 24HR 55 MCG/ACT [facility]ort Allergy 24HR 55 MCG/ACT No 1{spray _in_eac h_nostr il} QD Nasacort Allergy 24HR 55 MCG/ACT Trelegy Ellipta 100-62.5-25 MCG/ACT Trelegy Ellipta 100-62.5-25 MCG/ACT No Trelegy Ellipta 100-62.5-2 5 MCG/ACT Vital Signs Vital Name Observation Time Observation Value Comments S ky height 2024-08-19 08:20:00 60.5 [in_i] Comm on [facility] weight 2024-08-19 08:20:00 89 [lb_av] Commo n [facility] bmi 2024-08-19 08:20:00 17.09 kg/m2 Comm on [facility] height 2024-08-19 08:00:00 60.5 [in_i] Comm on [facility] weight 2024-08-19 08:00:00 89 [lb_av] Commo n [facility] bmi 2024-08-19 08:00:00 17.09 kg/m2 Comm on [facility] height 2024-07-28 08:20:00 60.5 [in_i] Comm on [facility] weight 2024-07-28 08:20:00 93.0 [lb_av] Com [facility] temperature 2024-07-28 08:20:00 97.2 [degF] Com [facility] bmi 2024-07-28 08:20:00 17.86 kg/m2 Comm on [facility] oximetry 2024-07-28 08:20:00 98 % Commo n [facility] respiratory rate 2024-07-28 08:20:00 17 /min [facility] blood pressure systolic 2024-07-28 08:20:00 110 mm[Hg] [facility] blood pressure diastolic 2024-07-28 08:20:00 62 mm[Hg] [facility] height 2024-04-27 14:40:00 60.5 [in_i] Comm on [facility] weight 2024-04-27 14:40:00 91.6 [lb_av] Com [facility] temperature 2024-04-27 14:40:00 97.6 [degF] Com [facility] bmi 2024-04-27 14:40:00 17.59 kg/m2 Comm on [facility] oximetry 2024-04-27 14:40:00 97 % Commo n [facility] respiratory rate 2024-04-27 14:40:00 16 /min Common [facility] blood pressure systolic 2024-04-27 14:40:00 128 mm[Hg] Common [facility] blood pressure diastolic 2024-04-27 14:40:00 72 mm[Hg] Common [facility] height 2024-04-13 15:00:00 60.5 [in_i] Comm on [facility] weight 2024-04-13 15:00:00 86 [lb_av] Commo n [facility] bmi 2024-04-13 15:00:00 16.52 kg/m2 Comm on [facility] height 2024-04-13 15:00:00 60.5 [in_i] Comm on [facility] weight 2024-04-13 15:00:00 86 [lb_av] Commo n [facility] bmi 2024-04-13 15:00:00 16.52 kg/m2 Comm on [facility] height 2023-10-16 08:40:00 60.5 [in_i] Comm on [facility] weight 2023-10-16 08:40:00 99 [lb_av] Commo n [facility] bmi 2023-10-16 08:40:00 19.01 kg/m2 Comm on [facility] height 2023-09-09 15:00:00 60.5 [in_i] Comm on [facility] weight 2023-09-09 15:00:00 99 [lb_av] Commo n [facility] temperature 2023-09-09 15:00:00 97.4 [degF] Com mon [facility] bmi 2023-09-09 15:00:00 19.01 kg/m2 Comm on [facility] oximetry 2023-09-09 15:00:00 97 % Commo n [facility] respiratory rate 2023-09-09 15:00:00 16 /min Common [facility] blood pressure systolic 2023-09-09 15:00:00 124 mm[Hg] Common [facility] blood pressure diastolic 2023-09-09 15:00:00 68 mm[Hg] Common [facility] height 2023-07-29 13:20:00 60.5 [in_i] Comm on [facility] weight 2023-07-29 13:20:00 99.4 [lb_av] Com mon [facility] temperature 2023-07-29 13:20:00 97.4 [degF] Com mon [facility] bmi 2023-07-29 13:20:00 19.09 kg/m2 Comm on [facility] oximetry 2023-07-29 13:20:00 97 % Commo n [facility] respiratory rate 2023-07-29 13:20:00 16 /min Common [facility] blood pressure systolic 2023-07-29 13:20:00 120 mm[Hg] Common [facility] blood pressure diastolic 2023-07-29 13:20:00 67 mm[Hg] Common [facility] height 2023-06-12 09:20:00 60.5 [in_i] Comm on [facility] weight 2023-06-12 09:20:00 101 [lb_av] Comm on [facility] bmi 2023-06-12 09:20:00 19.4 kg/m2 Commo n [facility] height 2023-03-05 14:00:00 60.5 [in_i] Comm on [facility] weight 2023-03-05 14:00:00 101.4 [lb_av] Co mmon [facility] temperature 2023-03-05 14:00:00 97.6 [degF] Com mon [facility] bmi 2023-03-05 14:00:00 19.48 kg/m2 Comm on [facility] oximetry 2023-03-05 14:00:00 95 % Commo n [facility] respiratory rate 2023-03-05 14:00:00 18 /min Common [facility] blood pressure systolic 2023-03-05 14:00:00 134 mm[Hg] [facility] blood pressure diastolic 2023-03-05 14:00:00 78 mm[Hg] [facility] height 2022-09-03 11:40:00 60.5 [in_i] Comm on [facility] weight 2022-09-03 11:40:00 104.6 [lb_av] Co mmon [facility] temperature 2022-09-03 11:40:00 97.8 [degF] Com mon [facility] bmi 2022-09-03 11:40:00 20.09 kg/m2 Comm on [facility] oximetry 2022-09-03 11:40:00 95 % Commo n [facility] respiratory rate 2022-09-03 11:40:00 16 /min [facility] blood pressure systolic 2022-09-03 11:40:00 139 mm[Hg] [facility] blood pressure diastolic 2022-09-03 11:40:00 67 mm[Hg] [facility] height 2022-09-03 10:40:00 60.5 [in_i] Comm on [facility] weight 2022-09-03 10:40:00 107 [lb_av] Comm on [facility] bmi 2022-09-03 10:40:00 20.55 kg/m2 Comm on [facility] oximetry 2022-09-03 10:40:00 95 % Commo n [facility] respiratory rate 2022-09-03 10:40:00 16 /min Common [facility] blood pressure systolic 2022-09-03 10:40:00 139 mm[Hg] [facility] blood pressure diastolic 2022-09-03 10:40:00 67 mm[Hg] [facility] height 2022-07-13 10:40:00 60.5 [in_i] Comm on [facility] weight 2022-07-13 10:40:00 107 [lb_av] Comm on [facility] temperature 2022-07-13 10:40:00 97.3 [degF] Com mon [facility] bmi 2022-07-13 10:40:00 20.55 kg/m2 Comm on [facility] oximetry 2022-07-13 10:40:00 98 % Commo n [facility] respiratory rate 2022-07-13 10:40:00 16 /min [facility] blood pressure systolic 2022-07-13 10:40:00 128 mm[Hg] [facility] blood pressure diastolic 2022-07-13 10:40:00 72 mm[Hg] [facility] Encounters Start Date/Time End Date/Time Encounter Type Admission Type Attending [facility] Care Facility Care Department Encounter ID Source 2024-07-28 08:19:00 Outpatient Brianna Samayoa STLMLC STLC [id number] [facility] 2024-07-24 15:32:00 Outpatient Brianna Samayoa STLMLC STLMLC [id number] [facility] 2024-03-12 08:42:00 Outpatient Brianna Samayoa STLMLC STLMLC [id number] [facility] 2023-06-12 09:41:01 Outpatient Brianna Samayoa STLMLC STLMLC [id number] [facility] 2023-04-09 15:15:00 Outpatient Brianna Samayoa STLMLC STLMLC [id number] [facility] 2022-08-29 08:38:01 Outpatient Brianna Samayoa STLMLC STLMLC [id number] [facility] 2022-07-13 10:40:03 Outpatient Brianna Samayoa STLMLC STLMLC [id number] [facility] 2024-09-09 00:00:00 2024-09-09 00:00:00 (TEL) STLMLC STLMLC [id number] [facility] 2024-08-19 00:00:00 2024-08-19 00:00:00 SUB [facility]AL [facility] V[facility] STLMLC STLMLC [id number] [facility] 2024-08-19 00:00:00 2024-08-19 00:00:00 OFFICE VISIT ESTAB PT LEVEL 4 STLMLC STLMLC [id number] [facility] 2024-08-19 00:00:00 2024-08-19 00:00:00 (TEL) STLMLC STLMLC [id number] [facility] 2024-07-28 00:00:00 2024-07-28 00:00:00 OFFICE VISIT ESTAB PT LEVEL 3 STLMLC STLMLC [id number] [facility] 2024-07-24 00:00:00 2024-07-24 00:00:00 (TEL) STLMLC STLMLC [id number] [facility] 2024-06-24 00:00:00 2024-06-24 00:00:00 (TEL) STLMLC STLMLC [id number] [facility] 2024-06-10 00:00:00 2024-06-10 00:00:00 (TEL) STLMLC STLMLC [id number] [facility] 2024-04-27 00:00:00 2024-04-27 00:00:00 OFFICE VISIT ESTAB PT LEVEL 3 STLMLC STLMLC [id number] [facility] 2024-04-17 00:00:00 2024-04-17 00:00:00 (TEL) STLMLC STLMLC [id number] [facility] 2024-04-13 00:00:00 2024-04-13 00:00:00 OFFICE VISIT ESTAB PT LEVEL 4 STLMLC STLMLC [id number] [facility] 2024-04-10 00:00:00 2024-04-10 00:00:00 (TEL) STLMLC STLMLC [id number] [facility] 2024-03-11 00:00:00 2024-03-11 00:00:00 (WEB) STLMLC STLMLC [id number] [facility] 2024-03-10 00:00:00 2024-03-10 00:00:00 (TEL) STLMLC STLMLC [id number] [facility] 2023-10-16 00:00:00 2023-10-16 00:00:00 OFFICE VISIT ESTAB PT LEVEL 3 STLMLC STLMLC [id number] [facility] 2023-10-15 00:00:00 2023-10-15 00:00:00 (TEL) STLMLC STLMLC [id number] [facility] 2023-09-09 00:00:00 2023-09-09 00:00:00 OFFICE VISIT ESTAB PT LEVEL 4 STLMLC STLMLC [id number] [facility] 2023-07-29 00:00:00 2023-07-29 00:00:00 OFFICE VISIT ESTAB PT LEVEL 3 STLMLC STLMLC [id number] [facility] 2023-07-25 00:00:00 2023-07-25 00:00:00 (WEB) STLMLC STLMLC [id number] [facility] 2023-06-18 00:00:00 2023-06-18 00:00:00 (TEL) STLMLC STLMLC [id number] [facility] 2023-06-12 00:00:00 2023-06-12 00:00:00 (WEB) STLMLC STLMLC [id number] [facility] 2023-06-12 00:00:00 2023-06-12 00:00:00 OFFICE VISIT ESTAB PT LEVEL 5 STLMLC STLMLC [id number] [facility] 2023-03-26 00:00:00 2023-03-26 00:00:00 Outpatient GC_GCBZW_Ka diyala_S PRIV PRIV [id number] [facility] 2023-03-25 00:00:00 2023-03-25 00:00:00 Outpatient GC_GCBZW_Ka diyala_S PRIV PRIV [id number] [facility] 2023-03-06 00:00:00 2023-03-06 00:00:00 (WEB) STLMLC STLMLC [id number] [facility] 2023-03-05 00:00:00 2023-03-05 00:00:00 OFFICE VISIT ESTAB PT LEVEL 4 STLMLC STLMLC [id number] [facility] 2022-11-29 00:00:00 2022-11-29 00:00:00 (TEL) STLMLC STLMLC [id number] [facility] 2022-11-22 00:00:00 2022-11-22 00:00:00 (TEL) STLMLC STLMLC [id number] [facility] 2022-09-14 00:00:00 2022-09-14 00:00:00 (TEL) STLMLC STLMLC [id number] [facility] 2022-09-03 00:00:00 2022-09-03 00:00:00 OFFICE VISIT ESTAB PT LEVEL 3 STLMLC STLMLC [id number] [facility] 2022-09-03 00:00:00 2022-09-03 00:00:00 SUB ANNUAL [facility] WELLNESS VISIT STLMLC STLMLC [id number] [facility] 2022-07-13 00:00:00 2022-07-13 00:00:00 OFFICE VISIT NEW PT LEVEL 3 STLMLC STLMLC [id number] [facility] 2021-12-01 00:00:00 2021-12-01 00:00:00 Refill Rissa [facility] LISA[facility] [id number] 350.1.13.10 4.2.7.2.686 [id number] [facility] 2021-09-22 00:00:00 2021-09-22 00:00:00 Refill Rissa [facility] LSIA[facility] 1.0.114 350.1.13.10 4.2.7.2.686 [id number] [facility] 2021-06-18 00:00:00 2021-06-18 00:00:00 Refill Rissa [facility] BUILDING 1.840.114 350.1.13.10 4.2.7.2.686 [id number] [facility] 2021-05-31 00:00:00 2021-05-31 00:00:00 Telephone Rissa [facility] LISA[facility] 1.84.114 350.1.13.10 4.2.7.2.686 [id number] [facility] 2021-04-30 00:00:00 2021-04-30 00:00:00 Refill Rissa [facility] NAL BUILDING 1.284.114 350.1.13.10 4.2.7.2.686 [id number] [facility] 2020-09-23 00:00:00 2020-09-23 00:00:00 Telephone Anna Jones [facility] Office Building One 1.284.114 350.1.13.10 4.2.7.2.686 [id number] [facility] 2020-09-15 00:00:00 2020-09-15 00:00:00 Orders Only Doctor Unassigned, [place] [facility] 1.2.840.114 350.1.13.10 4.2.7.2.686 [id number] [facility] 2020-09-14 00:00:00 2020-09-14 00:00:00 Telephone RissaReal [facility] 1.2.840.114 350.1.13.10 4.2.7.2.686 [id number] [facility] 2020-09-02 00:00:00 2020-09-02 00:00:00 Orders Only Doctor Unassigned, [place] [facility] 1.2.840.114 350.1.13.10 4.2.7.2.686 [id number] [facility] 2020-08-24 08:06:16 2020-08-24 08:21:16 Administrative Office Clerk Visit 2, Adc Lab Anna Jones [facility] 1.2840.114 350.1.13.10 4.2.7.2.686 [id number] [facility] 2020-08-24 08:15:00 2020-08-24 08:15:00 Outpatient R [facility] [id number] [facility] 2020-08-24 00:00:00 2020-08-24 00:00:00 Orders Only Doctor Unassigned, [place] [facility] 1.2.840.114 350.1.13.10 4.2.7.2.686 [id number] [facility] 2020-08-23 10:09:33 2020-08-23 11:01:17 Office Visit RissaViangelina [facility] 1.2840.114 350.1.13.10 4.2.7.2.686 [id number] [facility] 2020-08-23 10:00:00 2020-08-23 10:00:00 Outpatient R RISSAREAL [facility] [id number] [facility] 2020-08-23 00:00:00 2020-08-23 00:00:00 Telephone Job [facility] Office Building [facility] 1.0.114 350.1.13.10 4.2.7.2.686 [id number] [facility] 2020-08-18 00:00:00 2020-08-18 00:00:00 Telephone Job [facility] Office [facility] One ..114 350.1.13.10 4.2.7.2.686 [id number] [facility] 2020-08-01 00:00:00 2020-08-01 00:00:00 Patient Outreach Jaison Hernandez [facility] 1.0.114 350.1.13.10 4.2.7.2.686 [id number] [facility] 2020-06-25 00:00:00 2020-06-25 00:00:00 Refill Job [facility] 1..114 350.1.13.10 4.2.7.2.686 [id number] [facility] 2020-06-03 13:14:05 2020-06-03 13:29:05 Office Visit Anna Jones [facility] One ..114 350.1.13.10 4.2.7.2.686 [id number] [facility] 2020-06-03 13:15:00 2020-06-03 13:15:00 Outpatient R ANNA JONES [facility] [id number] [facility] 2020-05-06 13:00:00 2020-05-06 13:00:00 Outpatient R ANNA JONES [facility] [id number] [facility] 2020-04-05 09:03:34 2020-04-05 09:47:49 Office Visit Kwok [facility] 1.840.114 350.1.13.10 4.2.7.2.686 [id number] [facility] 2020-04-05 09:00:00 2020-04-05 09:00:00 Outpatient R RISSA [facility] [id number] [facility] 2020-04-05 00:00:00 2020-04-05 00:00:00 Orders Only Doctor Unassigned, [place] [facility] 1.84.114 350.1.13.10 4.2.7.2.686 [id number] [facility] 2020-02-03 08:51:07 2020-02-03 10:02:55 Nurse Visit Med, Medicare Wellness Tiago Kerr Job Anna Soriano [facility] 1.840.114 350.1.13.10 4.2.7.2.686 [id number] [facility] 2020-02-03 09:00:00 2020-02-03 09:00:00 Outpatient R [facility] [id number] [facility] 2020-01-05 00:00:00 2020-01-05 00:00:00 Patient Secure Msg Doctor Unassigned, [place] [facility] 1.114 350.1.13.10 4.2.7.2.686 [id number] [facility] 2019-12-02 09:06:11 2019-12-02 09:46:37 Office Visit Rissa [facility] 1.20.114 350.1.13.10 4.2.7.2.686 [id number] [facility] 2019-12-02 09:00:00 2019-12-02 09:00:00 Outpatient R REAL KWOK [facility] [id number] [facility] 2019-12-02 00:00:00 2019-12-02 00:00:00 Orders Only Doctor Unassigned, [place] [facility] 1.2.114 350.1.13.10 4.2.7.2.686 [id number] [facility] 2019-11-24 00:00:00 2019-11-24 00:00:00 Orders Only Doctor Unassigned, [place] [facility] 1.2114 350.1.13.10 4.2.7.2.686 [id number] [facility] 2019-11-09 00:00:00 2019-11-09 00:00:00 Telephone Anna Jones [facility] Office Building [facility] 1.114 350.1.13.10 4.2.7.2.686 [id number] [facility] 2019-11-06 09:26:06 2019-11-06 09:56:06 [facility] [facility] 1.2114 350.1.13.10 [id number] [id number] [facility] 2019-11-06 09:30:00 2019-11-06 09:30:00 Outpatient R ANNA JONES [facility] [id number] [facility] 2019-11-03 00:00:00 2019-11-03 00:00:00 Telephone Job [facility] [id number] [id number] [id number] [facility] 2019-10-31 20:44:09 2019-11-01 17:00:00 Hospital Encounter EderBette Owen Li-Young [facility] [id number] [id number] 4.2.7.2.686 [id number] [facility] 2019-10-31 20:44:09 2019-11-01 17:00:00 Inpatient U BETTE IZQUIERDO [facility] [id number] [facility] 2019-06-24 09:32:11 2019-06-24 10:32:19 Office Visit Rissa [facility] [id number] [id number] [id number] [id number] [facility] 2019-06-24 00:00:00 2019-06-24 00:00:00 Orders Only Doctor Unassigned, [place] [facility] [id number] 350.1.13.10 4.2.7.2.686 [id number] [facility] 2019-02-11 10:22:29 2019-02-11 10:37:29 Administrative Office Clerk Visit 2, Adc Lab Rissa [facility] [id number] 350.1.13.10 4.2.7.2.686 [id number] [facility] 2019-02-11 08:59:11 2019-02-11 10:10:21 Office Visit [facility] [id number] [id number] 4.2.7.2.686 [id number] [facility] 2019-02-11 00:00:00 2019-02-11 00:00:00 Orders Only Doctor Unassigned, [place] [facility] [id number] [id number] [id number] [facility] Results Test Description Test Time Test Comments Results Result Co mments Source CBC W/AUTO [id number] 00:00:00* Test Item Value Reference Range Interpretation Comme nts NUCLEATED RBCS (test code = 97611-2) 0.0 /100 WBC'S See_Comment [Automated messa ge] The system which generated this result transmitted reference range: 0.0 /100 WBC'S. The reference range was not used to interpret this result as normal/abnormal. ABSOLUTE EOSINOPHILS (test code = 60766-8) 0.17 K/UL See_Comment [Automated messa ge] The system which generated this result transmitted reference range: 0.00-0.50 K/UL. The reference range was not used to interpret this result as normal/abnormal. ABSOLUTE LYMPHOCYTES (test code = 99662-4) 1.07 K/UL See_Comment [Automated messa ge] The system which generated this result transmitted reference range: 1.00-4.00 K/UL. The reference range was not used to interpret this result as normal/abnormal. ABSOLUTE MONOCYTES (test code = 20091-0) 0.52 K/UL See_Comment [Automated messa ge] The system which generated this result transmitted reference range: 0.20-1.00 K/UL. The reference range was not used to interpret this result as normal/abnormal. ABSOLUTE NEUTROPHILS (test code = 02363-2) 3.98 K/UL See_Comment [Automated messa ge] The system which generated this result transmitted reference range: 1.50-7.50 K/UL. The reference range was not used to interpret this result as normal/abnormal. BASOPHILS (test code = 18613-8) 1.0 % EOSINOPHILS (test code = 84818-7) 2.9 % HEMATOCRIT (test code = 18975-1) 43.4 % See_Comment [Automated messa ge] The system which generated this result transmitted reference range: 34.0-45.0 %. The reference range was not used to interpret this result as normal/abnormal. HEMOGLOBIN (test code = 718-7) 14.2 G/DL See_Comment [Automated messa ge] The system which generated this result transmitted reference range: 11.5-15.5 G/DL. The reference range was not used to interpret this result as normal/abnormal. LYMPHOCYTES (test code = 00252-9) 18.4 % MCH (test code = 07563-1) 31.2 PG See_Comment [Automated messa ge] The system which generated this result transmitted reference range: 25.0-33.0 PG. The reference range was not used to interpret this result as normal/abnormal. MCHC (test code = 09630-0) 32.7 G/DL See_Comment [Automated messa ge] The system which generated this result transmitted reference range: 31.0-36.0 G/DL. The reference range was not used to interpret this result as normal/abnormal. MCV (test code = 82370-9) 95.4 fL See_Comment [Automated messa ge] The system which generated this result transmitted reference range: 80.0-99.0 fL. The reference range was not used to interpret this result as normal/abnormal. MONOCYTES (test code = 26365-4) 9.0 % NEUTROPHILS (test code = 29243-5) 68.5 % PLATELET COUNT (test code = 42751-6) 228 K/UL See_Comment [Automated messa ge] The system which generated this result transmitted reference range: 130-400 K/UL. The reference range was not used to interpret this result as normal/abnormal. RBC (test code = 38215-5) 4.55 M/UL See_Comment [Automated messa ge] The system which generated this result transmitted reference range: 3.80-5.40 M/UL. The reference range was not used to interpret this result as normal/abnormal. RDW (test code = 53308-9) 13.3 % See_Comment [Automated messa ge] The system which generated this result transmitted reference range: 11.5-15.0 %. The reference range was not used to interpret this result as normal/abnormal. WBC (test code = 78922-8) 5.8 K/UL See_Comment [Automated messa ge] The system which generated this result transmitted reference range: 3.5-11.0 K/UL. The reference range was not used to interpret this result as normal/abnormal. 3D SCR SAMANTHA BILAT W/CAD3D SCR SAMANTHA BILAT W/CADDEXA, BONE DENSITY AXIAL SKELEDEXA, BONE DENSITY AXIAL SKELE
[2024-10-07] MEDS ORDERED: ONDANSETRON 4 MG/2 ML VIAL ONE (06:41)
[2024-10-07] MEDS ORDERED: NA CHLORIDE 0.9% 1,000 ML ONE (06:41)
[2024-10-07 06:55] LABS: Absolute Eosinophils 0.3 K/uL (0-0.5); Absolute Lymphocytes (CBC) 0.9 K/uL (0.7-4.9); Absolute Monocytes 0.5 K/uL (0.1-1.3); Absolute Neutrophil 2.9 K/uL (1.8-8.0); Hematocrit 38.5 % (36.0-45.0); Hemoglobin 13.2 g/dL (12.0-15.0); Lymphocytes % 18.3 % (15.3-44.8); MCH 32.3 pg (27.0-35.0); MCHC 34.2 g/dL (32.0-36.0); MCV 94.4 fL (80-100); MPV 8.2 fL (7.6-11.3); Monocytes % 10.8 % (3.3-12.3); Neutrophils % 62.9 % (41.7-73.7); Nucleated Red Blood Cells % 0.1 % (0-0); Platelets 190 thou/uL (152-406); RBC Red Blood Cell Count 4.08 M/uL (3.86-4.86); Red Cell Distribution Width 14.8 % (12.1-15.2)
[2024-10-07 07:19] LABS: Albumin 3.5 g/dL (3.4-5.0); Albumin/Globulin Ratio 0.9 (1.1-1.8); Anion Gap 8.7 mEq/L (5.0-15.0); Bilirubin Direct 0.2 mg/dL (0-0.2); Bilirubin Indirect, Calculated 0.3 mg/dL (0.2-0.8); Bilirubin Total 0.5 mg/dL (0.2-1.0); Globulin 3.8 g/dL (2.3-3.5); Magnesium 2.2 mg/dL (1.6-2.4); Potassium 3.7 mEq/L (3.5-5.1); Protein, Total 7.3 g/dL (6.4-8.2); Troponin High Sensitivity 9.3 pg/mL (<58.9)
--- NOTE | 2024-10-07 07:48 | RAD REPORT ---
EXAMINATION: Head Brain Wo Cont CLINICAL INDICATION: Female, 69 years old.dizziness, headache TECHNIQUE: Axial CT images from the skull base to the vertex without intravenous contrast. Coronal an d sagittal reformatted images were created from the data set. One or more of the following dose reduction techniques were used: Automated exposure control, adjustment of the mA and/or kV according to patient size, and/or iterative reconstruction. Unless otherwise specified, incidental findings do not require dedicated imaging follow-up. [id number]. COMPARISON: 03/10/2024 FINDINGS: INTRACRANIAL: No acute intracranial hemorrhage. No hydrocephalus. No mass effect or midline shift. No significant white matter disease. VASCULATURE: No visualized abnormalities in the arteries or dural venous sinuses. SCALP/SKULL: No calvarial fracture identified. No acute soft tissue abnormality. SINUSES: The visualized paranasal sinuses are mostly clear. No significant mastoid fluid. IMPRESSION: No acute intracranial abnormality. No significant change from prior.
[2024-10-07] MEDS ORDERED: MECLIZINE HCL 12.5 MG TAB ONE (09:06)
--- NOTE | 2024-10-07 10:21 | ER ---
Nurse's Notes [facility] Name: Leigh Ann Staton Age: 69 yrs Sex: Female : 1955 Arrival Date: 10/07/2024 Time: 06:19 Bed 5 Private MD: Diagnosis: Benign paroxysmal vertigo, unspecified ear Presentation: 10/07 06:40 Chief complaint: Patient states: head spinning, vomiting, and headache. Coronavirus vc1 screen: Client denies travel out of the [place] in the last 14 days. Ebola Screen: Patient negative for fever greater than or equal to 101.5 degrees Fahrenheit, and additional compatible Ebola Virus Disease symptoms Patient denies exposure to infectious person. Patient denies travel to an Ebola-affected area in the 21 days before illness onset. No symptoms or risks identified at this time. Initial Sepsis Screen: Does the patient meet any 2 criteria? No. Patient's initial sepsis screen is negative. Does the patient have a suspected source of infection? No. Patient's initial sepsis screen is negative. Risk Assessment: Do you want to hurt yourself or someone else? Patient reports no desire to harm self or others. Onset of symptoms was October 07, 2024 at 05:30. 06:40 Method Of Arrival: Wheelchair vc1 06:40 Acuity: BETO 3 vc1 Triage Assessment: 06:50 Headache History: The patient has had previous headaches and this one is similar to bm8 previous episodes. General: Appears in no apparent distress. uncomfortable, Behavior is calm, cooperative, appropriate for age. Pain: Complains of pain in head Pain currently is 7 out of 10 on a pain scale. Quality of pain is described as aching, Pain began 2 hours ago. Also complains of nausea, inability to perform activities of daily living. EENT: No deficits noted. No signs and/or symptoms were reported regarding the EENT system. Neuro: Level of Consciousness is awake, alert, obeys commands, Oriented to person, place, time, situation, Appropriate for age Reports dizziness, headache occipital area, "this feels like vertigo.". Cardiovascular: Denies chest pain, shortness of breath, Capillary refill < 3 seconds in bilateral fingers Patient's skin is warm and dry. Cardiovascular: Rhythm is sinus rhythm. Respiratory: Airway is patent Respiratory effort is even, unlabored, Respiratory pattern is regular, symmetrical. GI: Reports nausea. : No signs and/or symptoms were reported regarding the genitourinary system. Derm: No signs and/or symptoms reported regarding the dermatologic system. Musculoskeletal: No signs and/or symptoms reported regarding the musculoskeletal system. Historical: - Allergies: 06:42 Sulfa (Sulfonamide Antibiotics); vc1 - PMHx: 06:42 diabetes mellitus; COPD (diabetes mellitus ); Hypothyroidism; GERD; vc1 - PSHx: 06:42 None; vc1 - Immunization history:: Adult Immunizations up to date, Client reports receiving the 1st dose of the Covid vaccine. - Infectious Disease History:: Denies. - Social history:: Smoking status: Patient denies any tobacco usage or history of. - Family history:: not pertinent. Screenin:[address] [facility] ED Fall Risk Assessment (Adult) History of falling in the last 3 months, vc1 including since admission No falls in past 3 months (0 pts) Confusion or Disorientation No (0 pts) Intoxicated or Sedated No (0 pts) Impaired Gait No (0 pts) Mobility Assist Device Used No (0 pt) Altered Elimination No (0 pt) Score/Fall Risk Level 0 - 2 = Low Risk Oriented to surroundings, Maintained a safe environment, Educated pt \\T\\ family on fall prevention, incl call for assistance when getting out of bed, Hourly rounding (assess needs \\T\\ fall precautionary measures) done. Abuse screen: Denies threats or abuse. Nutritional screening: No deficits noted. Tuberculosis screening: No symptoms or risk factors identified. Assessment: 06:53 General: see triage assessment. bm8 07:42 Reassessment: Patient appears in no apparent distress at this time. Patient and/or db family updated on plan of care and expected duration. Pain level reassessed. Patient is alert, oriented x 3, equal unlabored respirations, skin warm/dry/pink. General: Appears in no apparent distress. comfortable, Behavior is calm, cooperative. 08:17 Reassessment: Patient appears in no apparent distress at this time. Patient and/or db family updated on plan of care and expected duration. Pain level reassessed. Patient is alert, oriented x 3, equal unlabored respirations, skin warm/dry/pink. PT ASSISTED TO RESTROOM VIA WHEELCHAIR. Respiratory: Airway Respiratory effort is even, unlabored, Respiratory pattern is regular, symmetrical. 10:18 Reassessment: Pt ambulating to restroom at this time. Pt states that dizziness has cm10 improved. 10:51 Reassessment: Patient appears in no apparent distress at this time. Patient and/or db family updated on plan of care and expected duration. Pain level reassessed. Patient is alert, oriented x 3, equal unlabored respirations, skin warm/dry/pink. Patient states feeling better. Patient states symptoms have improved. Vital Signs: 06:40 BP 134 / 80; Pulse 66; Resp 14; Temp 97.6; Pulse Ox 97% ; Weight 41.28 kg; Height 5 ft. vc1 0 in. ; Pain 5/10; 07:30 BP 133 / 81; Pulse 61; Resp 16; Pulse Ox 100% on R/A; db 08:00 BP 138 / 77; Pulse 60; Resp 18; Pulse Ox 99% on R/A; db 09:00 BP 122 / 76; Pulse 65; Resp 18; Pulse Ox 100% on R/A; db 10:00 BP 125 / 72; Pulse 58; Resp 18; Pulse Ox 97% on R/A; db 06:40 Body Mass Index 17.77 (41.28 kg, 152.4 cm) vc1 06:40 Pain Scale: Adult vc1 Katie Coma Score: 06:49 Eye Response: spontaneous(4). Motor Response: obeys commands(6). Verbal Response: bm8 oriented(5). Total: 15. ED Course: 06:23 Patient arrived in ED. gm2 06:42 Triage completed. vc1 06:43 Arm band placed on right wrist. vc1 06:43 Patient has correct armband on for positive identification. Bed in low position. Call vc1 light in reach. Provided Education on: Plan of care. Pulse ox on. NIBP on. 06:49 Rupert Frausto, RN is Primary Nurse. bm8 06:49 No provider procedures requiring assistance completed. Initial lab(s) drawn, by jayshree metz sent to lab. EKG done, by ED staff, reviewed by Rupert Frausto RN. Inserted saline lock: 20 gauge in right forearm, using aseptic technique. Blood collected. Flushed with 10 mL NS. Patient maintains SpO2 saturation greater than 95% on room air. 06:59 Vasile Mann MD is Attending Physician. rt 07:[address] via wheelchair. db 07:25 CT Head Brain wo Cont In Process Unspecified. EDMS 10:51 IV discontinued, intact, bleeding controlled, No redness/swelling at site. db Administered Medications: 06:49 Drug: NS 0.9% IV 1000 ml IV at 1 bolus Per protocol; to be given as a bolus over 60 bm8 minutes Route: IV; Rate: 1 bolus; Site: right forearm; 09:14 Follow up: Response: No adverse reaction; IV Status: Completed infusion; IV Intake: cm10 1000ml 06:49 Drug: Ondansetron IVP 4 mg IVP once; over 2 minutes Route: IVP; Site: right forearm; bm8 09:14 Follow up: Response: No adverse reaction cm10 09:10 Drug: Meclizine PO 50 mg PO once Route: PO; cm10 10:10 Follow up: Response: No adverse reaction cm10 Medication: 06:49 VIS not applicable for this client. bm8 Intake: 09:14 IV: 1000ml; Total: 1000ml. cm10 Outcome: 10:20 Discharge ordered by . rt 10:51 Discharged to home ambulatory, with family, db 10:51 Condition: stable 10:51 Discharge instructions given to patient, family, Instructed on discharge instructions, follow up and referral plans. 10:55 Patient left the ED. db Signatures: Dispatcher [employer] EDMS Latisha Navarro RN RN vc1 So Jones RN RN db Vasile Mann MD MD rt Amalia Perez RN RN cm10 Marylu Gonzalez gm2 Rupert Frausto RN RN bm8 Corrections: (The following items were deleted from the chart) 06:53 06:50 Neuro: Level of Consciousness is awake, alert, obeys commands, Oriented to bm8 person, place, time, situation, Appropriate for age Reports dizziness, headache occipital area, bm8
--- NOTE | 2024-10-07 10:21 | EDPHYS ---
Physician Documentation [facility] Name: Leigh Ann Staton Age: 69 yrs Sex: Female : 1955 Arrival Date: 10/07/2024 Time: 06:19 Bed 5 Private MD: ED Physician Vasile Mann HPI: 10/07 07:37 This 69 yrs old Female presents to ER via Wheelchair with complaints of Dizziness, rt Headache, Nausea/Vomiting. 07:37 Patient presents to the ED with dizziness described as room spinning as well as rt associated nausea mild headache. Patient states that she is not sure if she has recurrence of her vertigo or dehydration. The patient states that her symptoms have improved but not completely resolved upon arrival to the emergency department. Denies other acute complaints at this time, symptoms are moderate in severity, no other aggravating or alleviating factors.. Historical: - Allergies: 06:42 Sulfa (Sulfonamide Antibiotics); vc1 - PMHx: 06:42 diabetes mellitus; COPD (diabetes mellitus ); Hypothyroidism; GERD; vc1 - PSHx: 06:42 None; vc1 - Immunization history:: Adult Immunizations up to date, Client reports receiving the 1st dose of the Covid vaccine. - Infectious Disease History:: Denies. - Social history:: Smoking status: Patient denies any tobacco usage or history of. - Family history:: not pertinent. ROS: 07:37 Constitutional: Negative for fever, chills, and weight loss, Cardiovascular: Negative rt for chest pain, palpitations, and edema, Respiratory: Negative for shortness of breath, cough, wheezing, and pleuritic chest pain, MS/Extremity: Negative for injury and deformity, Skin: Negative for injury, rash, and discoloration, 07:37 Abdomen/GI: Positive for nausea, Negative for abdominal pain, 07:37 Neuro: Positive for dizziness, headache, Exam: 07:37 Constitutional: This is a well developed, well nourished patient who is awake, alert, rt and in no acute distress. Head/Face: Normocephalic, atraumatic. Chest/axilla: Normal chest wall appearance and motion. Nontender with no deformity. No lesions are appreciated. Cardiovascular: Regular rate and rhythm with a normal S1 and S2. No gallops, murmurs, or rubs. Normal PMI, no JVD. No pulse deficits. Respiratory: Lungs have equal breath sounds bilaterally, clear to auscultation and percussion. No rales, rhonchi or wheezes noted. No increased work of breathing, no retractions or nasal flaring. Abdomen/GI: Soft, non-tender, with normal bowel sounds. No distension or tympany. No guarding or rebound. No evidence of tenderness throughout. Skin: Warm, dry with normal turgor. Normal color with no rashes, no lesions, and no evidence of cellulitis. MS/ Extremity: Pulses equal, no cyanosis. Neurovascular intact. Full, normal range of motion. 07:37 Eyes: Esotropia noted, pre-existing per patient unchanged, 2-3 beats of left going nystagmus, head impulse and test of skew negative. 07:37 ECG was reviewed by the Attending Physician. 07:37 Neuro: Speech normal, cranial nerves II through XII intact, strength and sensation intact in upper and lower extremities, no ataxia on finger-nose, Vital Signs: 06:40 BP 134 / 80; Pulse 66; Resp 14; Temp 97.6; Pulse Ox 97% ; Weight 41.28 kg; Height 5 ft. vc1 0 in. ; Pain 5/10; 07:30 BP 133 / 81; Pulse 61; Resp 16; Pulse Ox 100% on R/A; db 08:00 BP 138 / 77; Pulse 60; Resp 18; Pulse Ox 99% on R/A; db 09:00 BP 122 / 76; Pulse 65; Resp 18; Pulse Ox 100% on R/A; db 10:00 BP 125 / 72; Pulse 58; Resp 18; Pulse Ox 97% on R/A; db 06:40 Body Mass Index 17.77 (41.28 kg, 152.4 cm) vc1 06:40 Pain Scale: Adult vc1 Sterling Coma Score: 06:49 Eye Response: spontaneous(4). Motor Response: obeys commands(6). Verbal Response: bm8 oriented(5). Total: 15. MDM: 07:00 Medical Screening Exam initiated rt 13:41 Differential diagnosis: Dehydration, dysrhythmia, peripheral vertigo. Data reviewed: rt vital signs, nurses notes, lab test result(s), EKG, radiologic studies. Consideration of Admission/Observation Escalation of care including admission/observation considered. Patient states that symptoms have significantly proved, not completely resolved. She states that she feels well enough to go home and is desirous of discharge. For patient admission for further workup, states that she wishes to go home, return precautions were discussed.. I considered the following discharge prescriptions or medication management in the emergency department Medications were administered in the Emergency Department. See MAR. Independent interpretation of the following test(s) in the Emergency Department CT Scan: My interpretation is No intracranial hemorrhage seen on my interpretation of CT scan images. Care significantly affected by the following chronic conditions: Diabetes. Counseling: I had a detailed discussion with the patient and/or guardian regarding the historical points, exam findings, and any diagnostic results supporting the discharge/admit diagnosis, lab results, radiology results, the need for outpatient follow up, to return to the emergency department if symptoms worsen or persist or if there are any questions or concerns that arise at home. Response to treatment: the patient's symptoms have markedly improved after treatment. 10/07 06:37 Order name: Basic Metabolic Panel; Complete Time: 07:37 sp4 10/07 06:37 Order name: CBC with Diff; Complete Time: 07:37 4 10/07 06:37 Order name: LFT's; Complete Time: 07:37 sp4 10/07 06:37 Order name: Magnesium; Complete Time: 07:37 sp4 10/07 06:37 Order name: NT PRO-BNP; Complete Time: 07:37 4 10/07 06:37 Order name: Troponin HS; Complete Time: 07:37 sp4 10/07 06:38 Order name: Lipase; Complete Time: 07:37 4 10/07 07:10 Order name: CT Head Brain wo Cont; Complete Time: 07:58 rt 10/07 06:37 Order name: Cardiac monitoring; Complete Time: 06:49 sp4 10/07 06:37 Order name: EKG - Nurse/Tech; Complete Time: 06:49 sp4 10/07 06:37 Order name: IV Saline Lock; Complete Time: 06:49 sp4 10/07 06:37 Order name: Labs collected and sent; Complete Time: 06:49 sp4 10/07 06:37 Order name: O2 Per Protocol; Complete Time: 06:49 sp4 10/07 06:37 Order name: O2 Sat Monitoring; Complete Time: 06:49 sp4 EC:37 Rate is 61 beats/min. Rhythm is regular, Normal Sinus Rhythm with No ectopy. Left axis rt deviation noted. WI interval is normal. QRS interval is normal. QT interval is normal. No Q waves. No ST changes noted. Interpreted by me. Administered Medications: 06:49 Drug: NS 0.9% IV 1000 ml IV at 1 bolus Per protocol; to be given as a bolus over 60 bm8 minutes Route: IV; Rate: 1 bolus; Site: right forearm; 09:14 Follow up: Response: No adverse reaction; IV Status: Completed infusion; IV Intake: cm10 1000ml 06:49 Drug: Ondansetron IVP 4 mg IVP once; over 2 minutes Route: IVP; Site: right forearm; bm8 09:14 Follow up: Response: No adverse reaction cm10 09:10 Drug: Meclizine PO 50 mg PO once Route: PO; cm10 10:10 Follow up: Response: No adverse reaction cm10 Disposition Summary: 10/07/24 10:20 Discharge Ordered Notes: Location: Home rt Problem: new rt Symptoms: have improved rt Condition: Stable rt Diagnosis - Benign paroxysmal vertigo, unspecified ear rt Followup: rt - With: Private Physician - When: 2 - 3 days - Reason: Discharge Instructions: - Discharge Summary Sheet rt - Benign Positional Vertigo rt Forms: - Medication Reconciliation Form rt - Antibiotic Education rt - Prescription Opioid Use rt - Patient Portal Instructions rt - Leadership Thank You Letter rt Signatures: Dispatcher [employer] EDLatisha Ramirez RN RN vc1 Vasile Mann MD MD rt Abelino Schmidt MD MD sp4 Amalia Perez, JO-ANN RN cm10 Rupert Frausto, RN RN bm8 Corrections: (The following items were deleted from the chart) 06:38 06:38 BASIC METABOLIC PANEL+C.LAB.BRZ ordered. EDMS EDMS 06:38 06:38 CBC+H.LAB.BRZ ordered. EDMS EDMS 06:38 06:38 HEPATIC FUNCTION+C.LAB.BRZ ordered. EDMS EDMS 06:38 06:38 MAGNESIUM+C.LAB.BRZ ordered. EDMS EDMS 06:38 06:38 PROBNP+C.LAB.BRZ ordered. EDMS EDMS 06:38 06:38 PROTIME (+INR)+COAG.LAB.BRZ ordered. EDMS EDMS 06:38 06:38 Troponin High Sensitivity+C.LAB.BRZ ordered. EDMS EDMS
[2024-10-07 11:09] VITALS: TEMP 97.6
[2024-10-07 11:23] VITALS: BP 125/72; O2SAT 97
--- NOTE | 2024-10-07 12:13 | EKG ---
Test Date: 2024-10-07 Test Time: 06:43:00 Contact Lens Fitter: MEASUREMENT RESULTS: Intervals: Rate: 61 RI: 170 QRSD: 68 QT: 428 QTc: 430 [place]: P: 35 RI: 170 QRS: -41 T: 62 INTERPRETIVE STATEMENTS: Normal sinus rhythm Possible Left atrial enlargement Left axis deviation Cannot rule out Anterior infarct, age undetermined Abnormal ECG Compared to ECG 03/10/2024 09:56:01 Myocardial infarct finding now present T-wave abnormality no longer present Electronically Signed On 10-07-24 12:12:25 CDT by Rolando Hebert
== END 2024-10-07 10:55 | disposition home or self-care (01) ==
LOC: ER 06:19
DX: H81.10 Benign paroxysmal vertigo, unspecified ear (principal)
CPT/HCPCS: 93005; 85025; 80048; 36415; 83735; 80076; 84484; 83690; 83880; 70450; J8597; J2405; J7030; 96361; 96374; 99285